=== PATIENT | male | born 1965 | race American Indian/Alaskan Native ===

== ENCOUNTER 2016-12-11 16:17 | Emergency (ER) | payer SELFPAY | END 2016-12-11 16:46 | disposition left against medical advice (07) | LOC: ED 16:17 | DX: R07.9 Chest pain, unspecified (principal); Z53.21 Procedure and treatment not carried out due to patient leaving prior to being seen by health care provider ==

== ENCOUNTER 2017-01-07 12:26 | Inpatient (IN) | payer SELFPAY ==
[2017-01-07 14:25] LABS: Basophils % (Auto) 1.2 % (0.0-1.8); Eosinophils % (Auto) 1.5 % (0.0-4.3); Hemoglobin 15.7 gm/dl (11.8-15.2); Mean Corpuscular HGB Conc 31 % (32-34); Mean Corpuscular Volume 81 fl (84-94); Platelet Count 162 K/mm3 (140-440); Red Blood Count 6.18 M/mm3 (3.65-5.03); Red Cell Distribution Width 16.8 % (13.2-15.2); White Blood Count 8.3 K/mm3 (4.5-11.0)
[2017-01-07 14:28] LABS: Mean Corpuscular Hemoglobin 25 pg (28-32)
[2017-01-07 14:42] LABS: Anion Gap 17 mmol/L; Blood Urea Nitrogen 17 mg/dL (9-20); Calcium 9.1 mg/dL (8.4-10.2); Carbon Dioxide 27 mmol/L (22-30); Chloride 101.2 mmol/L (98-107); Glucose 94 mg/dL (75-100); Potassium 4.3 mmol/L (3.6-5.0); Sodium 141 mmol/L (137-145)
--- NOTE | 2017-01-07 16:32 | Emergency Department Report ---
ED Syncope HPI - General Chief Complaint: Syncope Stated Complaint: SYNOPAL EPISODE/CHEST PAIN Time Seen by Provider: 01/07/17 16:13 Source: patient, family Exam Limitations: no limitations - History of Present Illness Initial Comments: Patient reports had a syncopal episode today. She said she's had this 3 times in the past. Patient said he felt dizzy and fell and passed out. Patient says she came in for lunch and from patient lying on the floor and when she called his name he responded immediately . Patient has a history of CHF and A. fib and he is complaining of headache. Blood Pressure was 138/108 Shortness of breath. He reports swelling to legs and abdomen with SOB. [employer] is Dr. Coe. Patient does not have a PCP. He also reported that he had chest pain upon arrival to emergency room but he said he is not having any chest pain at present. Denies any nausea vomiting. Denies any abdominal pain. He does report feeling dizzy spell. Denies any fever or chills. Denies any cough. Timing/Prior Episodes: recent history Precipitating Factors: Positive: lightheadedness. Negative: blurred vision, confusion, diaphoresis, injury, nausea, pain, recent head trauma, rapid heart beat Context: standing Loss of Consciousness: unsure Current Symptoms: chest pain, dizziness, headache, injury, lightheadedness. denies: blurred vision, diaphoresis, loss of bladder control, loss of bowel control, motionless, nausea, pale, shallow/rapid breathing, weak/absent pulse, weakness - Related Data Allergies/Adverse Reactions: Allergies latex Allergy (Verified 08/21/16 13:46) Unknown soap [From Betadine] Allergy (Verified 06/11/16 19:44) Rash peas Allergy (Uncoded 11/12/16 18:00) Angioedema Home Medications: Ambulatory Orders Apixaban [Eliquis] 5 mg PO BID #60 tablet 11/18/16 Diltiazem [Cardizem] 90 mg PO Q8H #90 tablet 11/18/16 Famotidine [Pepcid] 20 mg PO BID #30 tablet 11/18/16 Potassium Chloride [K-Dur] 40 meq PO DAILY #30 tablet 11/18/16 Amiodarone [Cordarone 200 MG TAB] 400 mg PO BID 01/07/17 Digoxin [Lanoxin] 0.25 mg PO DAILY 01/07/17 Diltiazem HCl [Diltiazem ER] 360 mg PO DAILY 01/07/17 Furosemide [Lasix TAB] 40 mg PO QDAY 01/07/17 Lisinopril [Zestril] 20 mg PO BID 01/07/17 Methimazole [Tapazole] 10 mg PO Q8HR 01/07/17 Metoprolol [Lopressor TAB] 100 mg PO TID 01/07/17 ED Review of Systems ROS: Stated complaint: SYNOPAL EPISODE/CHEST PAIN Other details as noted in HPI Comment: All other systems reviewed and negative Constitutional: denies: chills, fever Eyes: denies: eye pain, vision change ENT: denies: ear pain, throat pain, congestion Respiratory: no symptoms reported, shortness of breath, SOB with exertion, SOB at rest. denies: cough, orthopnea, stridor, wheezing Cardiovascular: chest pain, dyspnea on exertion, orthopnea, edema. denies: palpitations, syncope Gastrointestinal: denies: abdominal pain, nausea, vomiting, diarrhea, constipation Musculoskeletal: arthralgia. denies: back pain Skin: denies: rash Neurological: headache, weakness. denies: numbness, paresthesias, confusion, abnormal gait, vertigo ED Past Medical Hx - Past Medical History Previous Medical History?: Yes Hx Hypertension: Yes Hx Congestive Heart Failure: Yes Hx Arthritis: Yes Additional medical history: ATRIAL FIB - Surgical History Past Surgical History?: Yes Additional Surgical History: Sinus - Family History Family history: diabetes, hypertension - Social History Smoking Status: Former Smoker Substance Use Type: Alcohol, Prescribed - Medications Home Medications: Home Medications Medication Instructions Recorded Confirmed Last Taken Type Apixaban [Eliquis] 5 mg PO BID #60 tablet 11/18/16 01/07/17 Unknown Rx Diltiazem [Cardizem] 90 mg PO Q8H #90 tablet 11/18/16 01/07/17 Unknown Rx Famotidine [Pepcid] 20 mg PO BID #30 tablet 11/18/16 01/07/17 Unknown Rx Potassium Chloride [K-Dur] 40 meq PO DAILY #30 tablet 11/18/16 01/07/17 Unknown Rx Amiodarone [Cordarone 200 MG TAB] 400 mg PO BID 01/07/17 01/07/17 Unknown History Digoxin [Lanoxin] 0.25 mg PO DAILY 01/07/17 01/07/17 Unknown History Diltiazem HCl [Diltiazem ER] 360 mg PO DAILY 01/07/17 01/07/17 Unknown History Furosemide [Lasix TAB] 40 mg PO QDAY 01/07/17 01/07/17 Unknown History Lisinopril [Zestril] 20 mg PO BID 01/07/17 01/07/17 Unknown History Methimazole [Tapazole] 10 mg PO Q8HR 01/07/17 01/07/17 Unknown History Metoprolol [Lopressor TAB] 100 mg PO TID 01/07/17 01/07/17 Unknown History ED Physical Exam - General Limitations: No Limitations General appearance: alert, in no apparent distress - Head Head exam: Present: atraumatic, normocephalic, normal inspection - Expanded Head Exam Expanded Head exam: Absent: laceration, abrasion, contusion, hematoma, racoon eyes, nichols's sign, general tenderness, tenderness of temporal artery, CSF rhinorrhea , CSF otorrhea - Eye Eye exam: Present: normal appearance, PERRL, EOMI. Absent: periorbital swelling , periorbital tenderness Pupils: Present: normal accommodation - ENT ENT exam: Present: normal exam - Neck Neck exam: Present: normal inspection, full ROM. Absent: tenderness, meningismus, lymphadenopathy - Respiratory Respiratory exam: Present: normal lung sounds bilaterally. Absent: respiratory distress, wheezes, rales, rhonchi, stridor, chest wall tenderness, accessory muscle use, decreased breath sounds, prolonged expiratory - Cardiovascular Cardiovascular Exam: Present: irregular rhythm. Absent: JVD - Expanded Cardiovascular Exam Expanded Peripheral pulses: 2+: Radial (R), Radial (L), Posterior Tibialis (R), Posterior Tibialis (L), Dorsalis Pedis (R), Dorsalis Pedis (L) - GI/Abdominal GI/Abdominal exam: Present: soft, distended, normal bowel sounds. Absent: tenderness, guarding, rebound, rigid, diminished bowel sounds, mass, bruit - Extremities Exam Extremities exam: Present: normal inspection, full ROM, normal capillary refill , pedal edema, other (swelling to legs and feet.). Absent: tenderness, joint swelling, calf tenderness - Expanded Upper Extremity Exam Left Shoulder Exam: Present: normal inspection, full ROM, tenderness. Absent: swelling, abrasion, laceration, ecchymosis, deformity, crepidus, dislocation, erythema, tenderness over AC joint Upper Arm exam: Present: normal inspection, full ROM, tenderness, swelling. Absent: abrasion, laceration, ecchymosis, deformity, crepidus, dislocation, erythema Elbow exam: Present: normal inspection, full ROM. Absent: tenderness, swelling , abrasion, laceration, ecchymosis, deformity, crepidus, dislocation, erythema, effusion, pain w/ pronation/supination, tenderness over radial head Forearm Wrist exam: Present: normal inspection, full ROM. Absent: tenderness, swelling, abrasion, laceration, ecchymosis, deformity, crepidus, dislocation, erythema, tenderness over anatomical snuff box, pain with axial thumb loading Hand Wrist exam: Present: normal inspection, full ROM. Absent: tenderness, swelling, abrasion, laceration, ecchymosis, deformity, crepidus, dislocation, erythema, amputation, nail avulsion, subungual hematoma Neuro motor exam: Present: wrist extension intact, thumb opposition intact, thumb IP flexion intact, thumb adduction intact, fingers 2-5 abduction intact Neurosensory exam: Present: 2-point discrimination, radial nerve intact, ulnar nerve intact, median nerve intact Vascular: Present: normal capillary refill, radial pulse, brachial pulse, ulnar pulse. Absent: vascular compromise, Pallo, pulse deficit radial art, pulse deficit ulnar art, pulse deficit brachial art - Back Exam Back exam: Present: normal inspection, full ROM, tenderness. Absent: CVA tenderness (R), CVA tenderness (L), muscle spasm, paraspinal tenderness, vertebral tenderness, rash noted - Neurological Exam Neurological exam: Present: alert, oriented X3, abnormal gait, reflexes normal. Absent: motor sensory deficit - Expanded Neurological Exam Expanded Neurological exam: Absent: innattentive, memory loss-remote event, memory loss- recent event, ataxia, receptive aphasia, expressive aphasia, total aphasia, tremor, protecting the airway Patient oriented to: Present: person, place, time Speech: Present: fluid speech Cranial nerves: EOM's Intact: Normal, Gag Reflex: Normal, Nystagmus: Normal Cerebellar function: Finger to Nose: Normal Upper motor neuron: Pronator Drift: Normal Sensory exam: Upper Extremity Light Touch: Normal, Upper Extremity Temperature: Normal, UE 2 Point Discrimination: Normal, Lower Extremity Light Touch: Normal, Lower Extremity Temperature: Normal, LE 2 Point Discrimination: Normal Motor strength exam: RUE: 5, LUE: 4, RLE: 3, LLE: 3 DTR: bicep (R): 2+, bicep (L): 2+, tricep (R): 2+, tricep (L): 2+, knee (R): 2+ , knee (L): 2+, ankle (R): 2+, ankle (L): 2+ Best Eye Response (Cuauhtemoc): (4) open spontaneously Best Motor Response (Cuauhtemoc): (6) obeys commands Best Verbal Response (Cuauhtemoc): (5) oriented Cuauhtemoc Total: 15 - Psychiatric Psychiatric exam: Present: normal affect, normal mood - Skin Skin exam: Present: warm, dry, intact, normal color. Absent: rash ED Course Vital Signs 01/07/17 01/07/17 01/07/17 12:46 16:24 16:30 Temperature 98 F Pulse Rate 95 H 71 Respiratory 22 21 Rate Blood Pressure 138/108 149/95 O2 Sat by Pulse 95 99 98 Oximetry 01/07/17 01/07/17 01/07/17 17:04 17:10 17:20 Temperature Pulse Rate 77 70 73 Respiratory 12 16 16 Rate Blood Pressure 149/95 149/95 145/95 O2 Sat by Pulse 100 99 100 Oximetry 01/07/17 01/07/17 01/07/17 17:30 17:40 17:50 Temperature Pulse Rate 82 80 68 Respiratory 21 21 16 Rate Blood Pressure 149/95 149/95 149/95 O2 Sat by Pulse 98 98 97 Oximetry 01/07/17 01/07/17 01/07/17 18:00 18:10 18:20 Temperature Pulse Rate 71 77 76 Respiratory 25 H 31 H 22 Rate Blood Pressure 149/95 149/95 149/95 O2 Sat by Pulse 99 99 99 Oximetry 01/07/17 01/07/17 01/07/17 18:30 18:40 18:50 Temperature Pulse Rate 101 H 78 77 Respiratory 14 29 H 28 H Rate Blood Pressure 149/95 149/95 149/95 O2 Sat by Pulse 99 97 99 Oximetry 01/07/17 19:00 Temperature Pulse Rate 105 H Respiratory 15 Rate Blood Pressure 149/95 O2 Sat by Pulse 93 Oximetry - Reevaluation(s) Reevaluation #1: 01/07/17 17:10 Patient is currently stable awaiting diagnostic and lab results. Reevaluation #2: 01/07/17 18:30 Patient remained stable pain is down to 2 out of 10. Reevaluation #3: 01/07/17 18:[address] [place] except patient for inpatient admission. ED Medical Decision Making - Lab Data Result diagrams: 01/07/17 14:05 01/07/17 14:05 Lab Results 01/07/17 01/07/17 01/07/17 Range/Units 14:05 14:05 14:05 WBC 8.3 (4.5-11.0) K/mm3 RBC 6.18 H (3.65-5.03) M/mm3 Hgb 15.7 H (11.8-15.2) gm/dl Hct 50.0 H (35.5-45.6) % MCV 81 L (84-94) fl MCH 25 L (28-32) pg MCHC 31 L (32-34) % RDW 16.8 H (13.2-15.2) % Plt Count 162 (140-440) K/mm3 Lymph % (Auto) 21.1 (13.4-35.0) % Faulkner % (Auto) 9.5 H (0.0-7.3) % Eos % (Auto) 1.5 (0.0-4.3) % Baso % (Auto) 1.2 (0.0-1.8) % Lymph # 1.7 (1.2-5.4) K/mm3 Faulkner # 0.8 (0.0-0.8) K/mm3 Eos # 0.1 (0.0-0.4) K/mm3 Baso # 0.1 (0.0-0.1) K/mm3 Seg Neutrophils % 66.7 (40.0-70.0) % Seg Neutrophils # 5.5 (1.8-7.7) K/mm3 Sodium 141 (137-145) mmol/L Potassium 4.3 (3.6-5.0) mmol/L Chloride 101.2 (98-107) mmol/L Carbon Dioxide 27 (22-30) mmol/L Anion Gap 17 mmol/L BUN 17 (9-20) mg/dL Creatinine 1.0 (0.8-1.5) mg/dL Estimated GFR > 60 ml/min BUN/Creatinine Ratio 17.00 % Glucose 94 (75-100) mg/dL Calcium 9.1 (8.4-10.2) mg/dL Magnesium 2.1 (1.7-2.3) mg/dL Total Bilirubin 0.6 (0.1-1.2) mg/dL Direct Bilirubin < 0.2 (0-0.2) mg/dL Indirect Bilirubin 0.4 mg/dL AST 81 H (5-40) units/L ALT 88 H (7-56) units/L Alkaline Phosphatase 74 (35-129) units/L Troponin T < 0.010 (0.00-0.029) ng/mL NT-Pro-B Natriuret Pep 1954 H (0-450) pg/mL Total Protein 6.8 (6.3-8.2) g/dL Albumin 3.9 (3.9-5) g/dL Albumin/Globulin Ratio 1.3 % 01/07/17 Range/Units 17:53 WBC (4.5-11.0) K/mm3 RBC (3.65-5.03) M/mm3 Hgb (11.8-15.2) gm/dl Hct (35.5-45.6) % MCV (84-94) fl MCH (28-32) pg MCHC (32-34) % RDW (13.2-15.2) % Plt Count (140-440) K/mm3 Lymph % (Auto) (13.4-35.0) % Faulkner % (Auto) (0.0-7.3) % Eos % (Auto) (0.0-4.3) % Baso % (Auto) (0.0-1.8) % Lymph # (1.2-5.4) K/mm3 Faulkner # (0.0-0.8) K/mm3 Eos # (0.0-0.4) K/mm3 Baso # (0.0-0.1) K/mm3 Seg Neutrophils % (40.0-70.0) % Seg Neutrophils # (1.8-7.7) K/mm3 Sodium (137-145) mmol/L Potassium (3.6-5.0) mmol/L Chloride (98-107) mmol/L Carbon Dioxide (22-30) mmol/L Anion Gap mmol/L BUN (9-20) mg/dL Creatinine (0.8-1.5) mg/dL Estimated GFR ml/min BUN/Creatinine Ratio % Glucose (75-100) mg/dL Calcium (8.4-10.2) mg/dL Magnesium (1.7-2.3) mg/dL Total Bilirubin (0.1-1.2) mg/dL Direct Bilirubin (0-0.2) mg/dL Indirect Bilirubin mg/dL AST (5-40) units/L ALT (7-56) units/L Alkaline Phosphatase (35-129) units/L Troponin T < 0.010 (0.00-0.029) ng/mL NT-Pro-B Natriuret Pep (0-450) pg/mL Total Protein (6.3-8.2) g/dL Albumin (3.9-5) g/dL Albumin/Globulin Ratio % - EKG Data -: EKG Interpreted by Me (Atrial Fib) - Radiology Data Radiology results: report reviewed, image reviewed interpreted by me: X-ray of right shoulder does not reveal any fracture or dislocation reviewed by Dr. Loera. X-ray of the chest reveals congestive heart failure. CT scan of the head revealed no acute findings. - Medical Decision Making ED course: Patient status post syncopal episode with headache, left shoulder pain, shortness of breath and abdominal distention. Denies history of congestive heart failure and he is having bilateral lower extremity swelling with abdominal swelling. AST and ALTs are elevated. BNP elevated. Left shoulder x-ray revealed no acute fracture dislocation and chest x-ray reveals CHF. I discussed this with patient and family. Patient received Lasix 40 mg IV , morphine 4 mg IV and Zofran 4 mg IV in emergency room. Patient will be admitted for acute exacerbation of chronic CHF. Critical care attestation.: If time is entered above; I have spent that time in minutes in the direct care of this critically ill patient, excluding procedure time. ED Disposition Clinical Impression: Shortness of breath, Edema extremities, Arthralgia of left shoulder region, Syncope and collapse, Elevated liver enzymes CHF exacerbation Qualifiers: Congestive heart failure type: unspecified congestive heart failure type Qualified Code(s): I50.9 - Heart failure, unspecified Disposition: OP ADMITTED IP TO THIS HOSP Is pt being admited?: Yes Does the pt Need Aspirin: No Condition: Stable
[2017-01-07] MEDS ORDERED: MORPHINE IV ONE (16:38)
[2017-01-07] MEDS ORDERED: ZOFRAN IV ONE (16:38)
[2017-01-07] MEDS ORDERED: LASIX IV ONE (16:41)
--- NOTE | 2017-01-07 17:21 | Cat Scan Report ---
FINAL REPORT PROCEDURE: CT HEAD/BRAIN WO CON TECHNIQUE: Computerized tomography of the head was performed without contrast material. HISTORY: syncope with dizziness COMPARISON: CT exam dated May 03, 2015 FINDINGS: There is likely a nondisplaced fracture of the nasal bones which could be new or old. Visualized portions of the paranasal sinuses and mastoid air cells are clear. No calvarial fracture is seen. Subacute to chronic lacunar infarct is seen in the inferior aspect of the left cerebellar hemisphere but is new since 2015. Mild chronic small vessel ischemic changes in the basal ganglia are similar to prior study. Cerebral ventricles are normal in size. No acute intracranial hemorrhage or mass effect is seen. IMPRESSION: Nondisplaced nasal bone fracture is seen which could be new or old as this area is not well included on prior study. Mild small vessel ischemic changes are seen without evidence of acute intracranial abnormality.
[2017-01-07 17:23] LABS: Alanine Aminotransferase 88 units/L (7-56); Albumin 3.9 g/dL (3.9-5); Albumin/Globulin Ratio 1.3 %; Alkaline Phosphatase 74 units/L (35-129); Bilirubin,Total 0.6 mg/dL (0.1-1.2); Magnesium 2.1 mg/dL (1.7-2.3); Total Protein 6.8 g/dL (6.3-8.2)
[2017-01-07 17:25] LABS: Bilirubin,Direct < 0.2 mg/dL (0-0.2); Bilirubin,Indirect 0.4 mg/dL
--- NOTE | 2017-01-07 18:48 | Admit Criteria Form ---
Admission Criteria Documentation: HEART FAILURE: COMMON COMPLICATIONS Clinical Indications for Inpatient Care (Place 'X' for any and all applicable criteria): Ongoing inpatient care may be indicated for heart failure with ANY ONE of the following (1)(2)(3)(4)(5): [ ]I. Ongoing need for care for primary condition requiring frequent therapy adjustments because of changes in cardiac function (eg, drug dosage changes for drugs that are renally metabolized) [X ]II. New-onset heart failure [ ]III. Heart failure with decreased urine output not responsive to attempts to optimize volume status [ ]IV. Acute cardiac ischemia causing or associated with failure [X ]V. Complications of heart failure, including ANY ONE of the following: [ ]a) Pericardial effusion [ ]b) Symptomatic pleural effusion [ ]c) O2 saturation <90% or PO2 < 60 mm Hg (8.0 kPa) on room air or require baseline supplemental O2 [ ]d) Tachypnea [X ]e) Dyspnea [ ]f) Syncope [ ]g) Change in mental status [ ]h) Acute renal insufficiency that is severe (reduction of more than 50% in estimated glomerular filtration rate from baseline) or progressive reduction of more than 25% in estimated glomerular filtration rate from baseline, with creatinine continuing to rise) [ ]i) Hemodynamic instability [ ]j) Anasarca [ ]k) Clinically significant metabolic abnormalities due to heart failure (eg, new-onset metabolic acidosis) Extended stay beyond goal length of stay for primary condition may be needed until ALL of the following are present(1)(3): [ ]a) Stable and effective diuretic regimen established (or patient on stable dialysis regimen if in chronic renal failure) [ ]b) Breathing comfortably at rest [ ]c) Saturation of arterial oxygen greater than 90% or at acceptable baseline [ ]d) Pulmonary edema absent or improved [ ]e) Hemodynamic stability [ ]f) Volume status acceptable on oral medication [ ]g) Peripheral or sacral edema absent or improved [ ]h) Renal function stable and manageable at a lower level of care [ ]i) Complications (eg, pleural effusion) resolved or manageable at a lower level of care [ ]j) Patient or caregiver has received written discharge instructions or educational material addressing activity level, diet, discharge medications, follow-up appointment, weight monitoring, and what to do if symptoms worsen The original [employer] content created by [employer] has been revised. The portions of the content which have been revised are identified through the use of italic text or in bold, and [facility] has neither reviewed nor approved the modified material.All other unmodified content is copyright [facility]. Please see references footnoted in the original [facility] edition 2016 Admission Criteria Met: Yes
--- NOTE | 2017-01-07 18:51 | XRay Report ---
FINAL REPORT PROCEDURE: XR SHOULDER 2 LT TECHNIQUE: Two views of the left shoulder are obtained. Two views of the chest are obtained. HISTORY: fall with lt shoulder pain COMPARISON: Chest x-ray dated April 09, 2016 FINDINGS: Left shoulder: There is no fracture or dislocation. No arthritic changes are seen. Chest: Changes of CHF are present without pulmonary edema. No pneumothorax or focal infiltrate is seen. Tiny amount of fluid is seen in the pulmonary fissures. IMPRESSION: No left shoulder abnormality is seen. Changes of CHF are present.
--- NOTE | 2017-01-07 19:52 | XRay Report ---
FINAL REPORT PROCEDURE: XR CHEST ROUTINE 2V TECHNIQUE: Two views of the left shoulder are obtained. Two views of the chest are obtained. HISTORY: sob COMPARISON: Chest x-ray dated April 09, 2016 FINDINGS: Left shoulder: There is no fracture or dislocation. No arthritic changes are seen. Chest: Changes of CHF are present without pulmonary edema. No pneumothorax or focal infiltrate is seen. Tiny amount of fluid is seen in the pulmonary fissures. IMPRESSION: No left shoulder abnormality is seen. Changes of CHF are present.
--- NOTE | 2017-01-08 02:51 | History and Physical Report ---
History of Present Illness Date of examination: 01/07/17 Date of admission: 01/07/17 18:45 History of present illness: 51-year-old man was diagnosed with A. fib, hypertension, CHF, LOLITA comes emergency room with complaints shortness of and syncopal episode. He also complaining of feeling dizzy, this is his fourth episode of syncope since May of last year, he's never had a Holter monitor. He stated he had a stress test last year which was negative Patient denies chest pain, palpitation, cough, abdominal pain, hematochezia, dysuria, frequency, focal weakness, dysarthria, fever chills, polydipsia polyuria, hot or cold intolerance, easy bruisability, or rash or bleeding from mucosal membrane, rhinorrhea, epistaxis, earache, tinnitus, blurry vision, eye discharge, anxiety, depression. Other review of systems negative PAST SURGICAL HISTORY: Sinus SOCIAL HISTORY:Quit smoking, alcohol, drugs FAMILY HISTORY: Hypertension Medications and Allergies Allergies Allergy/AdvReac Type Severity Reaction Status Date / Time latex Allergy Unknown Verified 08/21/16 13:46 soap [From Betadine] Allergy Rash Verified 06/11/16 19:44 peas Allergy Angioedema Uncoded 11/12/16 18:00 Home Medications Medication Instructions Recorded Confirmed Last Taken Type Apixaban [Eliquis] 5 mg PO BID #60 tablet 11/18/16 01/07/17 Unknown Rx Diltiazem [Cardizem] 90 mg PO Q8H #90 tablet 11/18/16 01/07/17 Unknown Rx Famotidine [Pepcid] 20 mg PO BID #30 tablet 11/18/16 01/07/17 Unknown Rx Potassium Chloride [K-Dur] 40 meq PO DAILY #30 tablet 11/18/16 01/07/17 Unknown Rx Amiodarone [Cordarone 200 MG TAB] 400 mg PO BID 01/07/17 01/07/17 Unknown History Digoxin [Lanoxin] 0.25 mg PO DAILY 01/07/17 01/07/17 Unknown History Diltiazem HCl [Diltiazem ER] 360 mg PO DAILY 01/07/17 01/07/17 Unknown History Furosemide [Lasix TAB] 40 mg PO QDAY 01/07/17 01/07/17 Unknown History Lisinopril [Zestril] 20 mg PO BID 01/07/17 01/07/17 Unknown History Methimazole [Tapazole] 10 mg PO Q8HR 01/07/17 01/07/17 Unknown History Metoprolol [Lopressor TAB] 100 mg PO TID 01/07/17 01/07/17 Unknown History Exam - Physical Exam Narrative exam: Gen. appearance: Patient lying in bed, no apparent distress HEENT: Normocephalic, atraumatic, pupils equally round and reactive to light, extraocular movement intact, and no sclericterus,. No JVD or thyromegaly or nodule,neck supple, no carotid bruit ,mucous membranes moist, no exudate or erythema Heart: S1, S2, regular rate and rhythm Lungs: Clear to auscultation bilaterally, breathing comfortable Abdomen: Positive bowel sounds, nontender, nondistended, no organomegaly Extremity: No edema, cyanosis, clubbing Skin: No rash, nodules, warm, dry Neuro: Oriented 3, cranial nerves II-12 intact, speech is fluent, motor and sensory intact - Constitutional Vitals: Temp Pulse Resp BP Pulse Ox 97.5 F L 65 18 146/71 100 01/08/17 01:06 01/08/17 01:06 01/08/17 01:06 01/08/17 01:06 01/08/17 01:06 Results - Labs CBC & Chem 7: 01/07/17 14:05 01/07/17 14:05 - Imaging and Cardiology EKG: image reviewed Chest x-ray: image reviewed Assessment and Plan Syncope Hypertension A. fib CHF, stable LOLITA Admits medicine Check cardiac enzymes, orthostatics, d-dimer Consult cardiology, continue appropriate outpatient medications, start DVT prophylaxis
[2017-01-08 06:18] LABS: Creatine Kinase MB 2.4 ng/mL (0.0-4.0)
[2017-01-08 06:21] LABS: Creatine Kinase 98 units/L (55-170)
[2017-01-08] MEDS: CARDIZEM PO SCH ×3 (06:24→21:05)
[2017-01-08] MEDS: TAPAZOLE PO SCH ×3 (06:25→21:42)
[2017-01-08] MEDS: PERCOCET 5/325 PO PRN ×4 (06:34→21:43)
[2017-01-08] MEDS: LASIX PO SCH (09:14)
[2017-01-08] MEDS: PEPCID PO SCH ×2 (09:14→21:43)
[2017-01-08] MEDS: ZESTRIL PO SCH ×2 (09:15→21:43)
[2017-01-08] MEDS: ELIQUIS PO SCH ×2 (09:15→21:43)
[2017-01-08] MEDS: CORDARONE PO SCH ×2 (09:15→21:42)
[2017-01-08 11:18] LABS: Creatine Kinase MB 2.3 ng/mL (0.0-4.0)
[2017-01-08 11:19] LABS: Creatine Kinase 97 units/L (55-170)
--- NOTE | 2017-01-08 11:30 | Consultation ---
History of Present Illness Consult date: 01/08/17 Requesting physician: KENNETH RYAN Consult reason: syncope History of present illness: The patient has a history of permanent atrial fibrillation and chronic systolic heart failure. He had normal coronary arteries on catheterization in July 2016. Ejection fraction was 40-45 percent at that time. He was admitted yesterday on account of syncope. The patient claims that he became short of breath while at home. He then proceeded to take his Lasix. However, he felt lightheaded on his way to get his medication. The next thing he remembers is waking up on the floor while his was shaking him. He claims that this is his fourth episode of syncope since July 2016. He experienced mild substernal chest pressure after the syncopal episode yesterday. Past History Past Medical History: atrial fib (permanent), heart failure (chronic systolic), hypertension, other (normal coronary arteries in July 2016; obstructive sleep apnea; chronic atypical chest pain) Social history: denies: smoking, alcohol abuse Family history: no significant family history Medications and Allergies Allergies Allergy/AdvReac Type Severity Reaction Status Date / Time latex Allergy Unknown Verified 08/21/16 13:46 soap [From Betadine] Allergy Rash Verified 06/11/16 19:44 peas Allergy Angioedema Uncoded 11/12/16 18:00 Home Medications Medication Instructions Recorded Confirmed Last Taken Type Apixaban [Eliquis] 5 mg PO BID #60 tablet 11/18/16 01/07/17 Unknown Rx Diltiazem [Cardizem] 90 mg PO Q8H #90 tablet 11/18/16 01/07/17 Unknown Rx Famotidine [Pepcid] 20 mg PO BID #30 tablet 11/18/16 01/07/17 Unknown Rx Potassium Chloride [K-Dur] 40 meq PO DAILY #30 tablet 11/18/16 01/07/17 Unknown Rx Amiodarone [Cordarone 200 MG TAB] 400 mg PO BID 01/07/17 01/07/17 Unknown History Digoxin [Lanoxin] 0.25 mg PO DAILY 01/07/17 01/07/17 Unknown History Diltiazem HCl [Diltiazem ER] 360 mg PO DAILY 01/07/17 01/07/17 Unknown History Furosemide [Lasix TAB] 40 mg PO QDAY 01/07/17 01/07/17 Unknown History Lisinopril [Zestril] 20 mg PO BID 01/07/17 01/07/17 Unknown History Methimazole [Tapazole] 10 mg PO Q8HR 01/07/17 01/07/17 Unknown History Metoprolol [Lopressor TAB] 100 mg PO TID 01/07/17 01/07/17 Unknown History Active Meds: Active Medications Amiodarone HCl (Cordarone) 400 mg PO BID [facility] Last Admin: 01/08/17 09:15 Dose: 400 mg Apixaban (Eliquis) 5 mg PO BID [facility] Last Admin: 01/08/17 09:15 Dose: 5 mg Diltiazem HCl (Cardizem) 90 mg PO Q8H [facility] Last Admin: 01/08/17 06:24 Dose: 90 mg Famotidine (Pepcid) 20 mg PO BID [facility] Last Admin: 01/08/17 09:14 Dose: 20 mg Furosemide (Lasix) 40 mg PO QDAY [facility] Last Admin: 01/08/17 09:14 Dose: 40 mg Lisinopril (Zestril) 20 mg PO BID [facility] Last Admin: 01/08/17 09:15 Dose: 20 mg Methimazole (Tapazole) 10 mg PO Q8HR [facility] Last Admin: 01/08/17 06:25 Dose: 10 mg Oxycodone/Acetaminophen (Percocet 5/325) 1 tab PO Q4H PRN PRN Reason: Pain, Moderate (4-6) Last Admin: 01/08/17 06:34 Dose: 1 tab Review of Systems Constitutional: no fever, no chills Ears, nose, mouth and throat: no ear pain, no ear discharge, no sore throat Cardiovascular: orthopnea, syncope, lightheadedness, shortness of breath, no chest pain, no palpitations Respiratory: shortness of breath, no cough, no hemoptysis Gastrointestinal: no abdominal pain, no nausea, no vomiting, no diarrhea, no constipation Genitourinary Male: no dysuria, no urinary frequency Rectal: no pain, no bleeding Musculoskeletal: no neck stiffness, no muscle weakness, no myalgias Integumentary: no rash, no pruritis Neurological: no weakness, no parathesias, no numbness, no headaches Endocrine: no cold intolerance, no heat intolerance Hematologic/Lymphatic: no easy bruising, no easy bleeding Allergic/Immunologic: no urticaria, no wheezing Physical Examination Vital Signs Last Vital Signs Temp 98.0 F 01/08/17 08:32 Pulse 83 01/08/17 08:32 Resp 18 01/08/17 08:32 BP 184/95 01/08/17 08:32 Pulse Ox 94 01/08/17 08:32 General appearance: no acute distress HEENT: Positive: EOMI, Normocephaly, Mucus Membranes Moist Neck: Positive: neck supple, trachea midline Cardiac: Positive: irregularly irregular, S1/S2 Lungs: Positive: clear to auscultation Neuro: Positive: Grossly Intact Abdomen: Positive: Soft, Active Bowel Sounds. Negative: Tender Skin: Positive: Clear. Negative: Rash Musculoskeletal: Normal Range of Motion Extremities: Present: normal. Absent: edema Results 01/07/17 14:05 01/07/17 14:05 Cardiac Enzymes 01/08/17 01/08/17 Range/Units 05:22 10:43 CK-MB (CK-2) 2.4 2.3 (0.0-4.0) ng/mL - Imaging and Cardiology EKG: image reviewed EKG interpretations - Telemetry EKG Rhythm: Atrial Fibrillation - EKG Supraventricular dysrhythmia: atrial fibrillation Myocardial infarction: septal PR (old age or ind Assessment and Plan The exact etiology of his syncopal episode is uncertain at this time. However, I am concerned about the potential for drug interactions especially with high dose amiodarone and digoxin combination. For now, I'm discontinuing digoxin. Resume metoprolol with the hope that we may be able to reduce amiodarone requirements. Obtain thyroid profile and digoxin level. - Patient Problems (1) Syncope Current Visit: Yes Status: Acute Qualifiers: Syncope type: unspecified Encounter type: E Qualified Code(s): R55 - Syncope and collapse (2) Acute on chronic systolic heart failure Current Visit: Yes Status: Acute (3) Permanent atrial fibrillation Current Visit: Yes Status: Chronic (4) Hypertension Current Visit: Yes Status: Chronic Qualifiers: Hypertension type: essential hypertension Qualified Code(s): I10 - Essential (primary) hypertension (5) Morbid obesity Current Visit: Yes Status: Chronic Qualifiers: Obesity type: O (6) Normal coronary arteries Current Visit: Yes Status: Chronic (7) Obstructive sleep apnea Current Visit: Yes Status: Chronic
--- NOTE | 2017-01-08 11:31 | Progress Note ---
Assessment and Plan Assessment and plan: Acute on chronic systolic heart failure. On Lasix, Amiodarone. cardiology following. Chronic atrial fibrillation. On Eliquis for anticoagulation, Cardizem for rate control. Hypertension. BP stable on cardizem Hyperthyroidism. On Tapazole Morbid obesity Sleep apnea. Pulmonology evaluation DVT prophylaxis. On Eliquis History Interval history: shortness of breath, syncope Hospitalist Physical - Physical exam Narrative exam: Gen. appearance: not in acute distress,morbidly obese HEENT: Normocephalic atraumatic Neck: supple no JVD Lungs: Bilateral basal rales, decreased breath sounds, no wheezes Heart: S1-S2 irregular, no murmurs, rubs or gallop Abdomen:soft, non-tender, non-distended, normal bowel sounds Extremity: bilateral lower ext edema, no clubbing or cyanosis Neuro : Awake alert oriented 3, no focal neurologic signs Psychiatry: normal mood Skin: no rashes - Constitutional Vitals: Temp Pulse Resp BP Pulse Ox 98.0 F 83 18 184/95 94 01/08/17 08:32 01/08/17 08:32 01/08/17 08:32 01/08/17 08:32 01/08/17 08:32 Results - Labs CBC & Chem 7: 01/07/17 14:05 01/07/17 14:05 Labs: Laboratory Last Values WBC 8.3 K/mm3 (4.5-11.0) 01/07/17 14:05 RBC 6.18 M/mm3 (3.65-5.03) H 01/07/17 14:05 Hgb 15.7 gm/dl (11.8-15.2) H 01/07/17 14:05 Hct 50.0 % (35.5-45.6) H 01/07/17 14:05 MCV 81 fl (84-94) L 01/07/17 14:05 MCH 25 pg (28-32) L 01/07/17 14:05 MCHC 31 % (32-34) L 01/07/17 14:05 RDW 16.8 % (13.2-15.2) H 01/07/17 14:05 Plt Count 162 K/mm3 (140-440) 01/07/17 14:05 Lymph % (Auto) 21.1 % (13.4-35.0) 01/07/17 14:05 [place] % (Auto) 9.5 % (0.0-7.3) H 01/07/17 14:05 Eos % (Auto) 1.5 % (0.0-4.3) 01/07/17 14:05 Baso % (Auto) 1.2 % (0.0-1.8) 01/07/17 14:05 Lymph # 1.7 K/mm3 (1.2-5.4) 01/07/17 14:05 [place] # 0.8 K/mm3 (0.0-0.8) 01/07/17 14:05 Eos # 0.1 K/mm3 (0.0-0.4) 01/07/17 14:05 Baso # 0.1 K/mm3 (0.0-0.1) 01/07/17 14:05 Seg Neutrophils % 66.7 % (40.0-70.0) 01/07/17 14:05 Seg Neutrophils # 5.5 K/mm3 (1.8-7.7) 01/07/17 14:05 Sodium 141 mmol/L (137-145) 01/07/17 14:05 Potassium 4.3 mmol/L (3.6-5.0) 01/07/17 14:05 Chloride 101.2 mmol/L (98-107) 01/07/17 14:05 Carbon Dioxide 27 mmol/L (22-30) 01/07/17 14:05 Anion Gap 17 mmol/L 01/07/17 14:05 BUN 17 mg/dL (9-20) 01/07/17 14:05 Creatinine 1.0 mg/dL (0.8-1.5) 01/07/17 14:05 Estimated GFR > 60 ml/min 01/07/17 14:05 BUN/Creatinine Ratio 17.00 % 01/07/17 14:05 Glucose 94 mg/dL (75-100) 01/07/17 14:05 Calcium 9.1 mg/dL (8.4-10.2) 01/07/17 14:05 Magnesium 2.1 mg/dL (1.7-2.3) 01/07/17 14:05 Total Bilirubin 0.6 mg/dL (0.1-1.2) 01/07/17 14:05 Direct Bilirubin < 0.2 mg/dL (0-0.2) 01/07/17 14:05 Indirect Bilirubin 0.4 mg/dL 01/07/17 14:05 AST 81 units/L (5-40) H 01/07/17 14:05 ALT 88 units/L (7-56) H 01/07/17 14:05 Alkaline Phosphatase 74 units/L (35-129) 01/07/17 14:05 Total Creatine Kinase 97 units/L (55-170) 01/08/17 10:43 CK-MB (CK-2) 2.3 ng/mL (0.0-4.0) 01/08/17 10:43 CK-MB (CK-2) Rel Index 2.3 (0-4) 01/08/17 10:43 Troponin T < 0.010 ng/mL (0.00-0.029) 01/08/17 10:43 NT-Pro-B Natriuret Pep 1954 pg/mL (0-450) H 01/07/17 14:05 Total Protein 6.8 g/dL (6.3-8.2) 01/07/17 14:05 Albumin 3.9 g/dL (3.9-5) 01/07/17 14:05 Albumin/Globulin Ratio 1.3 % 01/07/17 14:05
[2017-01-08] MEDS ORDERED: LANOXIN PO SCH (17:00)
[2017-01-09] MEDS: CARDIZEM PO SCH ×3 (05:47→20:54)
[2017-01-09] MEDS: TAPAZOLE PO SCH ×3 (05:47→22:30)
[2017-01-09] MEDS: PERCOCET 5/325 PO PRN ×3 (08:18→22:32)
[2017-01-09] MEDS: PEPCID PO SCH ×2 (09:41→22:32)
[2017-01-09] MEDS: CORDARONE PO SCH ×2 (09:44→22:32)
[2017-01-09] MEDS: ELIQUIS PO SCH ×2 (09:44→22:30)
[2017-01-09] MEDS: ZESTRIL PO SCH ×2 (09:45→22:31)
[2017-01-09] MEDS: LASIX PO SCH (09:45)
--- NOTE | 2017-01-09 10:39 | Progress Note ---
Assessment and Plan Continue current management. Obtain orthostatic parameters. I may ultimately reduce his amiodarone dose. - Patient Problems (1) Syncope Current Visit: Yes Status: Acute Qualifiers: Syncope type: unspecified Encounter type: E Qualified Code(s): R55 - Syncope and collapse (2) Acute on chronic systolic heart failure Current Visit: Yes Status: Acute (3) Permanent atrial fibrillation Current Visit: Yes Status: Chronic (4) Hypertension Current Visit: Yes Status: Chronic Qualifiers: Hypertension type: essential hypertension Qualified Code(s): I10 - Essential (primary) hypertension (5) Morbid obesity Current Visit: Yes Status: Chronic Qualifiers: Obesity type: O (6) Normal coronary arteries Current Visit: Yes Status: Chronic (7) Obstructive sleep apnea Current Visit: Yes Status: Chronic Subjective Date of service: 01/09/17 Principal diagnosis: Syncope, acute on chronic SHF, Perm Afib, HTN, LOLITA Interval history: He complains of dizziness when he walks to the bathroom. He is less short of breath. Objective Vital Signs Temp Pulse Pulse Resp BP BP Pulse Ox 01/09/17 09:45 78 01/09/17 06:25 97.6 F 77 18 122/86 94 01/09/17 05:47 79 122/86 01/09/17 01:00 97.6 F 71 20 138/91 96 01/08/17 22:27 99 01/08/17 21:43 77 20 125/64 01/08/17 21:05 77 126/88 01/08/17 20:54 97.3 F L 77 20 126/88 97 01/08/17 20:19 86 01/08/17 20:01 94 01/08/17 17:51 98.1 F 80 20 139/87 93 01/08/17 13:55 98.1 F 83 18 137/106 94 01/08/17 11:50 78 - Physical Examination HEENT: Positive: EOMI, Normocephaly, Mucus Membranes Moist Neck: Positive: neck supple, trachea midline Cardiac: Positive: irregularly irregular, S1/S2 Lungs: Positive: clear to auscultation Neuro: Positive: Grossly Intact Abdomen: Positive: Soft, Active Bowel Sounds. Negative: Tender Skin: Positive: Clear. Negative: Rash Musculoskeletal: Normal Range of Motion Extremities: Present: normal. Absent: edema - Labs and Meds Cardiac Enzymes 01/08/17 Range/Units 10:43 CK-MB (CK-2) 2.3 (0.0-4.0) ng/mL - Imaging and Cardiology EKG: image reviewed - Telemetry EKG Rhythm: Atrial Fibrillation Myocardial infarction: septal [place] (old age or ind
--- NOTE | 2017-01-09 16:18 | Progress Note ---
Assessment and Plan Assessment and plan: Acute on chronic systolic heart failure. On Lasix, Amiodarone. Cardiology following. He feels better. Less shortness of breath. Less leg edema.. Possibly be discharged home tomorrow. Chronic atrial fibrillation with ventricular rate. On Eliquis for anticoagulation, Cardizem for rate control. Hypertension. BP stable on cardizem Hyperthyroidism. On Tapazole Morbid obesity Sleep apnea. Pulmonology evaluation. Obtain ABG. CPAP q hs DVT prophylaxis. On Eliquis History Interval history: less shortness of breath, no chest pain syncope Hospitalist Physical - Physical exam Narrative exam: Gen. appearance: not in acute distress,morbidly obese HEENT: Normocephalic atraumatic Neck: supple no JVD Lungs: Bilateral basal rales, decreased breath sounds, no wheezes Heart: S1-S2 irregular, no murmurs, rubs or gallop Abdomen:soft, non-tender, non-distended, normal bowel sounds Extremity: bilateral lower ext edema, no clubbing or cyanosis Neuro : Awake alert oriented 3, no focal neurologic signs Psychiatry: normal mood Skin: no rashes - Constitutional Vitals: Temp Pulse Resp BP Pulse Ox 98.0 F 78 22 161/90 98 01/09/17 08:00 01/09/17 14:41 01/09/17 08:00 01/09/17 08:00 01/09/17 10:00 General appearance: Present: no acute distress Results - Labs CBC & Chem 7: 01/07/17 14:05 01/07/17 14:05 Labs: Laboratory Last Values WBC 8.3 K/mm3 (4.5-11.0) 01/07/17 14:05 RBC 6.18 M/mm3 (3.65-5.03) H 01/07/17 14:05 Hgb 15.7 gm/dl (11.8-15.2) H 01/07/17 14:05 Hct 50.0 % (35.5-45.6) H 01/07/17 14:05 MCV 81 fl (84-94) L 01/07/17 14:05 MCH 25 pg (28-32) L 01/07/17 14:05 MCHC 31 % (32-34) L 01/07/17 14:05 RDW 16.8 % (13.2-15.2) H 01/07/17 14:05 Plt Count 162 K/mm3 (140-440) 01/07/17 14:05 Lymph % (Auto) 21.1 % (13.4-35.0) 01/07/17 14:05 [place] % (Auto) 9.5 % (0.0-7.3) H 01/07/17 14:05 Eos % (Auto) 1.5 % (0.0-4.3) 01/07/17 14:05 Baso % (Auto) 1.2 % (0.0-1.8) 01/07/17 14:05 Lymph # 1.7 K/mm3 (1.2-5.4) 01/07/17 14:05 [place] # 0.8 K/mm3 (0.0-0.8) 01/07/17 14:05 Eos # 0.1 K/mm3 (0.0-0.4) 01/07/17 14:05 Baso # 0.1 K/mm3 (0.0-0.1) 01/07/17 14:05 Seg Neutrophils % 66.7 % (40.0-70.0) 01/07/17 14:05 Seg Neutrophils # 5.5 K/mm3 (1.8-7.7) 01/07/17 14:05 Sodium 141 mmol/L (137-145) 01/07/17 14:05 Potassium 4.3 mmol/L (3.6-5.0) 01/07/17 14:05 Chloride 101.2 mmol/L (98-107) 01/07/17 14:05 Carbon Dioxide 27 mmol/L (22-30) 01/07/17 14:05 Anion Gap 17 mmol/L 01/07/17 14:05 BUN 17 mg/dL (9-20) 01/07/17 14:05 Creatinine 1.0 mg/dL (0.8-1.5) 01/07/17 14:05 Estimated GFR > 60 ml/min 01/07/17 14:05 BUN/Creatinine Ratio 17.00 % 01/07/17 14:05 Glucose 94 mg/dL (75-100) 01/07/17 14:05 Calcium 9.1 mg/dL (8.4-10.2) 01/07/17 14:05 Magnesium 2.1 mg/dL (1.7-2.3) 01/07/17 14:05 Total Bilirubin 0.6 mg/dL (0.1-1.2) 01/07/17 14:05 Direct Bilirubin < 0.2 mg/dL (0-0.2) 01/07/17 14:05 Indirect Bilirubin 0.4 mg/dL 01/07/17 14:05 AST 81 units/L (5-40) H 01/07/17 14:05 ALT 88 units/L (7-56) H 01/07/17 14:05 Alkaline Phosphatase 74 units/L (35-129) 01/07/17 14:05 Total Creatine Kinase 97 units/L (55-170) 01/08/17 10:43 CK-MB (CK-2) 2.3 ng/mL (0.0-4.0) 01/08/17 10:43 CK-MB (CK-2) Rel Index 2.3 (0-4) 01/08/17 10:43 Troponin T < 0.010 ng/mL (0.00-0.029) 01/08/17 10:43 NT-Pro-B Natriuret Pep 1954 pg/mL (0-450) H 01/07/17 14:05 Total Protein 6.8 g/dL (6.3-8.2) 01/07/17 14:05 Albumin 3.9 g/dL (3.9-5) 01/07/17 14:05 Albumin/Globulin Ratio 1.3 % 01/07/17 14:05 TSH 0.904 mlU/mL (0.270-4.200) 01/08/17 13:06 Free T4 1.63 ng/dL (0.76-1.46) H 01/08/17 13:06 Digoxin 0.2 ng/mL (0.9-2.0) L 01/08/17 13:06
[2017-01-09 18:07] LABS: ISTAT Base Excess 1; ISTAT DEVICE 0; ISTAT HCO3 26.2; ISTAT PCO2 46.2 (35-45); ISTAT PH 7.361 (7.35-7.45); ISTAT PO2 67 (80-105); ISTAT SO2 92; ISTAT TCO2 28
[2017-01-09] MEDS: LOPRESSOR PO SCH (22:31)
[2017-01-10] MEDS: TAPAZOLE PO SCH ×2 (05:32→14:00)
[2017-01-10] MEDS: CARDIZEM PO SCH ×2 (05:32→12:31)
[2017-01-10 10:05] VITALS: BP 165/99
[2017-01-10] MEDS: PEPCID PO SCH (10:12)
[2017-01-10] MEDS: LOPRESSOR PO SCH (10:12)
[2017-01-10] MEDS: LASIX PO SCH (10:13)
[2017-01-10] MEDS: CORDARONE PO SCH (10:13)
[2017-01-10] MEDS: ZESTRIL PO SCH (10:13)
[2017-01-10] MEDS: ELIQUIS PO SCH (10:14)
[2017-01-10] MEDS: PERCOCET 5/325 PO PRN ×2 (10:18→14:03)
--- NOTE | 2017-01-10 10:58 | Discharge Summary ---
Providers - Providers Date of Admission: 01/07/17 18:45 Date of discharge: 01/10/17 Attending physician: NAS ARMSTRONG 01/08/17 04:18 Consult to Physician [CONS] Routine Consulting Provider: KAVYA CANALES Reason For Exam: syncope Notified:: office secretary pl call 01/09/17 14:30 Consult to Physician [CONS] Routine Consulting Provider: MARTÍN MO Reason For Exam: sleep apnea, shortness of breath Place consult to:: Dr. 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
--- NOTE | 2017-01-10 11:52 | Progress Note ---
Assessment and Plan Stable cardiac status. He will be discharged home from a cardiac standpoint. 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 - Patient Problems (1) Syncope Current Visit: Yes Status: Acute Qualifiers: Syncope type: unspecified Encounter type: E Qualified Code(s): R55 - Syncope and collapse (2) Acute on chronic systolic heart failure Current Visit: Yes Status: Acute (3) Permanent atrial fibrillation Current Visit: Yes Status: Chronic (4) Hypertension Current Visit: Yes Status: Chronic Qualifiers: Hypertension type: essential hypertension Qualified Code(s): I10 - Essential (primary) hypertension (5) Morbid obesity Current Visit: Yes Status: Chronic Qualifiers: Obesity type: O (6) Normal coronary arteries Current Visit: Yes Status: Chronic (7) Obstructive sleep apnea Current Visit: Yes Status: Chronic Subjective Date of service: 01/10/17 Principal diagnosis: Syncope, acute on chronic SHF, Perm Afib, HTN, LOLITA Interval history: No new complaints. Objective Vital Signs Temp Pulse Pulse Pulse Resp BP BP 01/10/17 11:28 74 01/10/17 10:18 20 01/10/17 10:13 65 165/99 01/10/17 10:12 65 165/99 01/10/17 09:47 01/10/17 08:15 97.9 F 65 20 165/99 01/10/17 05:43 97.6 F 82 18 121/64 01/10/17 05:32 85 121/64 01/10/17 02:58 78 22 01/10/17 00:54 98.2 F 84 20 110/64 01/09/17 22:31 78 138/89 01/09/17 22:00 01/09/17 20:54 73 138/81 01/09/17 20:13 97.5 F L 73 18 138/81 01/09/17 18:10 98.3 F 84 20 182/88 01/09/17 14:41 78 01/09/17 12:00 70 Pulse Ox 01/10/17 11:28 01/10/17 10:18 97 01/10/17 10:13 01/10/17 10:12 01/10/17 09:47 97 01/10/17 08:15 97 01/10/17 05:43 94 01/10/17 05:32 01/10/17 02:58 94 01/10/17 00:54 94 01/09/17 22:31 01/09/17 22:00 92 01/09/17 20:54 01/09/17 20:13 92 01/09/17 18:10 94 01/09/17 14:41 01/09/17 12:00 - Physical Examination General: No Apparent Distress HEENT: Positive: EOMI, Normocephaly, Mucus Membranes Moist Neck: Positive: neck supple, trachea midline Cardiac: Positive: irregularly irregular, S1/S2 Lungs: Positive: clear to auscultation Neuro: Positive: Grossly Intact Abdomen: Positive: Soft, Active Bowel Sounds. Negative: Tender Skin: Positive: Clear. Negative: Rash Musculoskeletal: Normal Range of Motion Extremities: Present: normal. Absent: edema - Imaging and Cardiology EKG: image reviewed - Telemetry EKG Rhythm: Atrial Fibrillation Myocardial infarction: septal [place] (old age or ind
== END 2017-01-10 17:14 | disposition home or self-care (01) | DRG 292 ==
LOC: ED 12:26 → 4A 18:45
PROVIDERS: ADMIT Internal Medicine; ATTEND Internal Medicine
DX: I50.23 Acute on chronic systolic (congestive) heart failure (principal); Z68.43 Body mass index [BMI] 50.0-59.9, adult; I11.0 Hypertensive heart disease with heart failure; Z91.040 Latex allergy status; Z88.8 Allergy status to other drugs, medicaments and biological substances; Z91.010 Allergy to peanuts; M19.90 Unspecified osteoarthritis, unspecified site; Z83.3 Family history of diabetes mellitus; Z82.49 Family history of ischemic heart disease and other diseases of the circulatory system; G47.33 Obstructive sleep apnea (adult) (pediatric); I48.2 Chronic atrial fibrillation; E66.01 Morbid (severe) obesity due to excess calories; E05.90 Thyrotoxicosis, unspecified without thyrotoxic crisis or storm; Z87.891 Personal history of nicotine dependence
CPT/HCPCS: 36415; 36600; 70450; 71020; 80048; 80074; 80162; 82550; 82553; 82803; 83735; 83880; 84439; 84443; 84484; 85025; 93005; 93010; 94660; 94760; 96374; 96375; J1940; J2270; J2405

== ENCOUNTER 2017-03-12 12:25 | Emergency (ER) | payer SELFPAY ==
--- NOTE | 2017-03-12 12:57 | Emergency Department Report ---
Entered by BRIELLE AGUIRRE, acting as scribe for KYE LABOY NP. Chief Complaint: Extremity Injury, Lower Stated Complaint: SWOLLEN LEFT FOOT/PAIN Time Seen by Provider: 03/12/17 12:50 - HPI History of Present Illness: 52 y/o male presents c/o left foot pain that started 2 days ago. Sx include swelling that started yesterday and what he states is his "heart fluttering" here in ED. Pt denies SOB or any injury to the foot. - ROS Review of Systems: + swelling + "heart flutter" -SOB - Exam Vital Signs: Vital Signs 03/12/17 12:49 Temperature 97.6 F Pulse Rate 114 H Respiratory 18 Rate Blood Pressure 140/94 O2 Sat by Pulse 95 Oximetry Physical Exam: Obese male ambulatory with limp L dorsal foot with erythema and edema MSE screening note: Focused history and physical exam performed. Due to findings the following was ordered: labs, ekg ED Disposition for MSE Condition: Stable This documentation as recorded by the scribe,BRIELLE AGUIRRE,accurately reflects the service I personally performed and the decisions made by NARDA cano TRACY M, NP.
[2017-03-12 13:11] LABS: Eosinophils % (Auto) 2.1 % (0.0-4.3); Hematocrit 47.4 % (35.5-45.6); Hemoglobin 15.1 gm/dl (11.8-15.2); Mean Corpuscular HGB Conc 32 % (32-34); Mean Corpuscular Hemoglobin 26 pg (28-32); Mean Corpuscular Volume 82 fl (84-94); Platelet Count 126 K/mm3 (140-440); Red Cell Distribution Width 15.2 % (13.2-15.2); White Blood Count 6.6 K/mm3 (4.5-11.0)
[2017-03-12 13:30] LABS: BUN/Creatinine Ratio 24.28; Blood Urea Nitrogen 17 mg/dL (9-20); Carbon Dioxide 28 mmol/L (22-30)
[2017-03-12 13:31] LABS: Alanine Aminotransferase 28 units/L (7-56); Albumin 3.8 g/dL (3.9-5); Albumin/Globulin Ratio 1.3 %; Alkaline Phosphatase 73 units/L (35-129); Anion Gap 18 mmol/L; Bilirubin,Total 0.7 mg/dL (0.1-1.2); Calcium 9.3 mg/dL (8.4-10.2); Chloride 99.6 mmol/L (98-107); Glucose 148 mg/dL (75-100); Potassium 3.6 mmol/L (3.6-5.0); Sodium 142 mmol/L (137-145); Total Protein 6.7 g/dL (6.3-8.2); Uric Acid 8.9 mg/dL (3.5-7.6)
[2017-03-12] MEDS ORDERED: TYLENOL ONE (16:38)
[2017-03-12] MEDS ORDERED: TYLENOL PO ONE (16:40)
[2017-03-12] MEDS ORDERED: COLCRYS PO ONE (17:00)
--- NOTE | 2017-03-12 20:37 | Emergency Department Report ---
ED Lower Extremity HPI - General Chief Complaint: Extremity Injury, Lower Stated Complaint: SWOLLEN LEFT FOOT/PAIN Time Seen by Provider: 03/12/17 12:49 Source: patient Mode of arrival: Ambulatory Limitations: No Limitations - History of Present Illness Initial Comments: Patient is a 52-year-old male with a history of hypertension, A. fib, hyperlipidemia, diabetes, CHF, and morbid C presents with left foot pain 2 days. Patient reports atraumatic left foot pain, swelling, and redness to the top of the foot. Patient reports associated joint stiffness. Patient denies any history of gout, and reports he did drink a lot of alcohol the day before his symptoms appeared. Otherwise no fevers, chills, nausea, vomiting, diarrhea , chest pain, shortness of breath, abdominal pain, trauma, travel, or sick contacts. Patient given colchicine here in the ER. -: Sudden, days(s) (2 days) - Related Data Home Medications Medication Instructions Recorded Confirmed Last Taken Diltiazem HCl [Diltiazem ER] 360 mg PO DAILY 01/07/17 01/07/17 Unknown Furosemide [Lasix TAB] 40 mg PO QDAY 01/07/17 01/07/17 Unknown Lisinopril [Zestril TAB] 20 mg PO BID 01/07/17 01/07/17 Unknown Methimazole [Tapazole] 10 mg PO Q8HR 01/07/17 01/07/17 Unknown Previous Rx's Medication Instructions Recorded Last Taken Type Apixaban [Eliquis] 5 mg PO BID #60 tablet 11/18/16 Unknown Rx Diltiazem [Cardizem] 90 mg PO Q8H #90 tablet 11/18/16 Unknown Rx Famotidine [Pepcid] 20 mg PO BID #30 tablet 11/18/16 Unknown Rx Potassium Chloride [K-Dur] 40 meq PO DAILY #30 tablet 11/18/16 Unknown Rx Amiodarone [Cordarone 200 MG TAB] 200 mg PO BID #60 tablet 01/10/17 Unknown Rx Metoprolol [Lopressor TAB] 25 mg PO BID #60 tablet 01/10/17 Unknown Rx HYDROcodone/APAP 5-325 [[place] 1 each PO Q4HR PRN #12 tablet 03/12/17 Unknown Rx 5/325] Indomethacin 50 mg PO Q8H #15 capsule 03/12/17 Unknown Rx Allergies Allergy/AdvReac Type Severity Reaction Status Date / Time latex Allergy Itching Verified 03/12/17 12:49 soap [From Betadine] Allergy Rash Verified 03/12/17 12:49 peas Allergy Angioedema Uncoded 03/12/17 12:49 ED Review of Systems ROS: Stated complaint: SWOLLEN LEFT FOOT/PAIN Other details as noted in HPI Comment: All other systems reviewed and negative ED Past Medical Hx - Past Medical History Hx Hypertension: Yes Hx Congestive Heart Failure: Yes Hx Arthritis: Yes Additional medical history: ATRIAL FIB. OBESITY - Surgical History Additional Surgical History: Sinus - Social History Smoking Status: Former Smoker Substance Use Type: Alcohol - Medications Home Medications: Home Medications Medication Instructions Recorded Confirmed Last Taken Type Apixaban [Eliquis] 5 mg PO BID #60 tablet 11/18/16 01/07/17 Unknown Rx Diltiazem [Cardizem] 90 mg PO Q8H #90 tablet 11/18/16 01/07/17 Unknown Rx Famotidine [Pepcid] 20 mg PO BID #30 tablet 11/18/16 01/07/17 Unknown Rx Potassium Chloride [K-Dur] 40 meq PO DAILY #30 tablet 11/18/16 01/07/17 Unknown Rx Diltiazem HCl [Diltiazem ER] 360 mg PO DAILY 01/07/17 01/07/17 Unknown History Furosemide [Lasix TAB] 40 mg PO QDAY 01/07/17 01/07/17 Unknown History Lisinopril [Zestril TAB] 20 mg PO BID 01/07/17 01/07/17 Unknown History Methimazole [Tapazole] 10 mg PO Q8HR 01/07/17 01/07/17 Unknown History Amiodarone [Cordarone 200 MG TAB] 200 mg PO BID #60 tablet 01/10/17 Unknown Rx Metoprolol [Lopressor TAB] 25 mg PO BID #60 tablet 01/10/17 Unknown Rx HYDROcodone/APAP 5-325 [[place] 1 each PO Q4HR PRN #12 tablet 03/12/17 Unknown Rx 5/325] Indomethacin 50 mg PO Q8H #15 capsule 03/12/17 Unknown Rx ED Physical Exam - General Limitations: No Limitations, Other (Morbidly obese) General appearance: alert, in no apparent distress - Head Head exam: Present: atraumatic, normocephalic - Eye Eye exam: Present: normal appearance - ENT ENT exam: Present: mucous membranes moist - Neck Neck exam: Present: normal inspection - Respiratory Respiratory exam: Present: normal lung sounds bilaterally. Absent: respiratory distress - Cardiovascular Cardiovascular Exam: Present: regular rate, normal rhythm. Absent: systolic murmur, diastolic murmur, rubs, gallop - GI/Abdominal GI/Abdominal exam: Present: soft, normal bowel sounds - Rectal Rectal exam: Present: deferred - Extremities Exam Extremities exam: Present: full ROM, tenderness (to the dorsum of the L foot), normal capillary refill, pedal edema (over the dorsum of the left foot only), joint swelling, other (No warmth, mild erythema) - Back Exam Back exam: Present: normal inspection - Neurological Exam Neurological exam: Present: alert, oriented X3 - Psychiatric Psychiatric exam: Present: normal affect, normal mood - Skin Skin exam: Present: warm, dry, intact. Absent: rash ED Course Vital Signs 03/12/17 03/12/17 03/12/17 12:49 16:50 19:01 Temperature 97.6 F 98.9 F Pulse Rate 114 H 94 H Respiratory 18 Rate Blood Pressure 140/94 Blood Pressure 189/110 [Left] O2 Sat by Pulse 95 100 Oximetry 03/12/17 19:04 Temperature Pulse Rate Respiratory Rate Blood Pressure Blood Pressure [Left] O2 Sat by Pulse 94 Oximetry ED Lower Extremity MDM - Lab Data Result diagrams: 03/12/17 12:57 03/12/17 12:57 Critical care attestation.: If time is entered above; I have spent that time in minutes in the direct care of this critically ill patient, excluding procedure time. ED Disposition Clinical Impression: Foot pain, Gout attack Disposition: DISCHARGED TO HOME OR SELFCARE Is pt being admited?: No Condition: Stable Instructions: Acute Gouty Arthritis (ED), Arthralgia (ED) Prescriptions: HYDROcodone/APAP 5-325 [[place] 5/325] 1 each PO Q4HR PRN #12 tablet PRN Reason: Pain Indomethacin 50 mg PO Q8H #15 capsule Referrals: PRIMARY CARE, [Primary Care Provider] - 3-5 Days
[2017-03-12 20:48] VITALS: BP 180/123
== END 2017-03-12 21:12 | disposition home or self-care (01) ==
LOC: ED 12:25
DX: M10.9 Gout, unspecified (principal); M79.672 Pain in left foot; I10 Essential (primary) hypertension; I50.9 Heart failure, unspecified; M19.90 Unspecified osteoarthritis, unspecified site; Z87.891 Personal history of nicotine dependence; E66.9 Obesity, unspecified; Z91.010 Allergy to peanuts; Z91.040 Latex allergy status
CPT/HCPCS: 36415; 80053; 83880; 84484; 84550; 85025; 93005; 93010; 99283

== ENCOUNTER 2017-08-07 13:26 | Emergency (ER) | payer OTHER ==
[2017-08-07] MEDS ORDERED: NACL 0.9% 1000 ML 1,000 ML IV ONE (14:00)
[2017-08-07] MEDS ORDERED: CARDIZEM ONE (14:14)
[2017-08-07] MEDS ORDERED: NACL 0.9% 1000 ML 1,000 ML ONE (14:15)
[2017-08-07] MEDS ORDERED: CARDIZEM IV ONE ×3 (14:16→14:45)
[2017-08-07 14:23] LABS: Basophils % (Auto) 0.7 % (0.0-1.8); Hematocrit 47.5 % (35.5-45.6); Hemoglobin 15.2 gm/dl (11.8-15.2); Mean Corpuscular HGB Conc 32 % (32-34); Mean Corpuscular Hemoglobin 27 pg (28-32); Mean Corpuscular Volume 83 fl (84-94); Platelet Count 170 K/mm3 (140-440); Red Blood Count 5.74 M/mm3 (3.65-5.03); Red Cell Distribution Width 14.9 % (13.2-15.2); White Blood Count 6.7 K/mm3 (4.5-11.0)
--- NOTE | 2017-08-07 14:26 | XRay Report ---
PORTABLE CHEST INDICATION: Chest pain. COMPARISON: 01/07/2017 FINDINGS: Portable, frontal chest radiograph again demonstrates mild cardiomegaly. Prominent/crowded bronchovascular markings centrally without significant pleural effusions or overt CHF. EKG leads. Stable bones with few degenerative changes. CONCLUSION: Cardiomegaly again noted, as described. Thank you for the opportunity to participate in this patient's care.
[2017-08-07 14:32] LABS: Anion Gap 18 mmol/L; Blood Urea Nitrogen 10 mg/dL (9-20); Calcium 9.4 mg/dL (8.4-10.2); Carbon Dioxide 26 mmol/L (22-30); Chloride 98.8 mmol/L (98-107); Glucose 178 mg/dL (75-100); Potassium 3.6 mmol/L (3.6-5.0); Sodium 139 mmol/L (137-145)
[2017-08-07] MEDS ORDERED: SUBLIMAZE IV ONE ×2 (14:56→14:59)
[2017-08-07] MEDS ORDERED: CARDIZEM/D5W 100MG/100ML 100 MG/100 ML BAG IV SCH ×2 (15:00)
--- NOTE | 2017-08-07 15:32 | Emergency Department Report ---
ED Chest Pain HPI - General Chief Complaint: Chest Pain Stated Complaint: CHEST PAIN Time Seen by Provider: 08/07/17 13:58 Source: patient Mode of arrival: Ambulatory Limitations: Physical Limitation - History of Present Illness Initial Comments: 52-year-old male presents to the emergency department, driving himself in to be seen, with a complaint of sharp nature no chest pain that began earlier this morning and has been going on since. It is associated with some mild shortness of breath. He denies any nausea, vomiting, diaphoresis, back pain. The patient has a history of CHF, hypertension and atrial fibrillation. He is on [place] and says that he has been compliant with his medication. Patient says that he has not been in atrial fibrillation for "a while." He did not take anything for her symptoms prior to presentation. He does not have a primary care physician and his knocker off is a Dr. Bernal through [facility]. Severity scale (0 -10): 6 - Related Data Home Medications Medication Instructions Recorded Confirmed Last Taken Diltiazem HCl [Diltiazem ER] 360 mg PO DAILY 01/07/17 01/07/17 Unknown Furosemide [Lasix TAB] 40 mg PO QDAY 01/07/17 01/07/17 Unknown Lisinopril [Zestril TAB] 20 mg PO BID 01/07/17 01/07/17 Unknown Methimazole [Tapazole] 10 mg PO Q8HR 01/07/17 01/07/17 Unknown Previous Rx's Medication Instructions Recorded Last Taken Type Apixaban [Eliquis] 5 mg PO BID #60 tablet 11/18/16 Unknown Rx Diltiazem [Cardizem] 90 mg PO Q8H #90 tablet 11/18/16 Unknown Rx Famotidine [Pepcid] 20 mg PO BID #30 tablet 11/18/16 Unknown Rx Potassium Chloride [K-Dur] 40 meq PO DAILY #30 tablet 11/18/16 Unknown Rx Amiodarone [Cordarone 200 MG TAB] 200 mg PO BID #60 tablet 01/10/17 Unknown Rx Metoprolol [Lopressor TAB] 25 mg PO BID #60 tablet 01/10/17 Unknown Rx HYDROcodone/APAP 5-325 [[place] 1 each PO Q4HR PRN #12 tablet 03/12/17 Unknown Rx 5/325] Indomethacin 50 mg PO Q8H #15 capsule 03/12/17 Unknown Rx Allergies Allergy/AdvReac Type Severity Reaction Status Date / Time latex Allergy Itching Verified 03/12/17 12:49 soap [From Betadine] Allergy Rash Verified 03/12/17 12:49 peas Allergy Angioedema Uncoded 03/12/17 12:49 Heart Score - HEART Score History: Moderately suspicious EKG: Non-specific Age: 45-65 Risk factors: > 3 risk factors or hx of atherosclerotic disease Troponin: < normal limit HEART Score: 5 - Critical Actions Critical Actions: 4-6 pts:12-16.6% risk of adverse cardiac event. Should be admitted ED Review of Systems ROS: Stated complaint: CHEST PAIN Other details as noted in HPI Comment: All other systems reviewed and negative Constitutional: denies: chills, fever Eyes: denies: eye pain, eye discharge, vision change ENT: denies: ear pain, throat pain Respiratory: shortness of breath. denies: cough Cardiovascular: chest pain. denies: palpitations Gastrointestinal: denies: abdominal pain, nausea, diarrhea Genitourinary: denies: urgency, dysuria Musculoskeletal: denies: back pain, joint swelling, arthralgia Skin: denies: rash, lesions Neurological: denies: headache, weakness, paresthesias ED Past Medical Hx - Past Medical History Previous Medical History?: Yes Hx Hypertension: Yes Hx Congestive Heart Failure: Yes Hx Arthritis: Yes Additional medical history: ATRIAL FIB. OBESITY - Surgical History Past Surgical History?: Yes Additional Surgical History: Sinus - Social History Smoking Status: Former Smoker Substance Use Type: Prescribed - Medications Home Medications: Home Medications Medication Instructions Recorded Confirmed Last Taken Type Apixaban [Eliquis] 5 mg PO BID #60 tablet 11/18/16 01/07/17 Unknown Rx Diltiazem [Cardizem] 90 mg PO Q8H #90 tablet 11/18/16 01/07/17 Unknown Rx Famotidine [Pepcid] 20 mg PO BID #30 tablet 11/18/16 01/07/17 Unknown Rx Potassium Chloride [K-Dur] 40 meq PO DAILY #30 tablet 11/18/16 01/07/17 Unknown Rx Diltiazem HCl [Diltiazem ER] 360 mg PO DAILY 01/07/17 01/07/17 Unknown History Furosemide [Lasix TAB] 40 mg PO QDAY 01/07/17 01/07/17 Unknown History Lisinopril [Zestril TAB] 20 mg PO BID 01/07/17 01/07/17 Unknown History Methimazole [Tapazole] 10 mg PO Q8HR 01/07/17 01/07/17 Unknown History Amiodarone [Cordarone 200 MG TAB] 200 mg PO BID #60 tablet 01/10/17 Unknown Rx Metoprolol [Lopressor TAB] 25 mg PO BID #60 tablet 01/10/17 Unknown Rx HYDROcodone/APAP 5-325 [[place] 1 each PO Q4HR PRN #12 tablet 03/12/17 Unknown Rx 5/325] Indomethacin 50 mg PO Q8H #15 capsule 03/12/17 Unknown Rx ED Physical Exam - General Limitations: Physical Limitation - Other Other exam information: GENERAL: The patient is well-developed well-nourished. HENT: Normocephalic. Atraumatic. Patient has moist mucous membranes. EYES: Extraocular motions are intact. Pupils equal reactive to light bilaterally. NECK: Supple. Trachea is midline. CHEST/LUNGS: Lungs are clear to auscultation. There is some mild tachypnea but no accessory muscle use. There is no respiratory distress. HEART/CARDIOVASCULAR: Irregularly irregular. With rapid rate. ABDOMEN: Abdomen is soft, nontender. Patient has normal bowel sounds. There is no abdominal distention. Morbidly obese habitus. SKIN: Skin is warm and dry. NEURO: The patient is awake, alert, and oriented. The patient is cooperative. The patient has no focal neurologic deficits. The patient has normal speech. MUSCULOSKELETAL: There is no tenderness or deformity. There is no limitation range of motion. There is no evidence of acute injury. ED Course Vital Signs 08/07/17 08/07/17 08/07/17 13:38 14:20 14:39 Temperature 97.5 F L Pulse Rate 72 174 H 152 H Respiratory 20 22 Rate Blood Pressure 124/100 107/63 Blood Pressure 106/64 [Right] O2 Sat by Pulse 95 98 Oximetry 08/07/17 14:50 Temperature Pulse Rate 91 H Respiratory 22 Rate Blood Pressure Blood Pressure 103/60 [Right] O2 Sat by Pulse 100 Oximetry ANIL score - Anil Score Age > 65: (0) No Aspirin use within the Past 7 Days: (0) No 3 or more CAD Risk Factors: (1) Yes 2 or more Angina events in past 24 hrs: (0) No Known CAD with more than 50% Stenosis: (0) No Elevated Cardiac Markers: (0) No ST Deviation Greater than 0.5mm: (0) No ANIL Score: 1 ED Medical Decision Making - Lab Data Result diagrams: 08/07/17 13:47 08/07/17 13:47 - EKG Data -: EKG Interpreted by Me - EKG Data When compared to previous EKG there are: changes noted (previous EKG shows sinus rhythm, current is atrial fibrillation) Interpretation: other (atrial fibrillation with rate of 177 bpm, normal axis, nonspecific ST-T changes) - Radiology Data Radiology results: image reviewed interpreted by me: Chest x-ray does not show any acute process. There are no pleural effusions, obvious pneumonia and there is no pneumothorax. - Medical Decision Making 52-year-old male presents to the emergency department with chest pain and in atrial fibrillation with RVR. He has a history of this in the past but is not in constant A. fib. He was given 2 boluses of Cardizem followed by a Cardizem drip and there is rate control but there has not been any chemical cardioversion. Patient is feeling improved with rate control and some pain medication. First troponin negative. Patient is allegedly therapeutic on his anticoagulation and therefore lower suspicion of PE as a source of his symptoms. He will be admitted to the hospital for further evaluation and treatment and previously has seen [facility] cardiology while at [facility]. - Differential Diagnosis atrial fibrillation, OR, pneumonia, CHF Critical Care Time: No Critical care attestation.: If time is entered above; I have spent that time in minutes in the direct care of this critically ill patient, excluding procedure time. ED Disposition Clinical Impression: Atrial fibrillation with RVR Obesity Qualifiers: Obesity type: unspecified obesity type Obesity classification: unspecified obesity classification Serious obesity comorbidity presence: unspecified whether serious comorbidity present Qualified Code(s): E66.9 - Obesity, unspecified Chest pain Qualifiers: Chest pain type: unspecified Qualified Code(s): R07.9 - Chest pain, unspecified Disposition: OP ADMIT IP TO THIS HOSP Is pt being admited?: Yes Condition: Fair Instructions: Chest Pain (ED) Referrals: PRIMARY CARE, [Primary Care Provider] - 3-5 Days Time of Disposition: 15:33
--- NOTE | 2017-08-07 15:43 | Admit Criteria Form ---
Admission Criteria Documentation: TELEMETRY CARE Telemetry Admission Guidelines (Place 'X' for any and all applicable criteria): Admission to telemetry [A] may be indicated for ANY ONE of the following(1)(2)(3 )(4)(5): [x ]I. Cardiac disease, including ANY ONE of the following (9)(10)(11)(12)( 13): [ ]a) Postacute AK [ ]b) Low-risk patients with ST-segment elevation AK who have undergone successful percutaneous coronary intervention [x ]c) Unstable angina [ ]d) Suspected AK (until it is ruled out) [ ]e) Post cardiac surgery (first 48 to 72 hours unless complications occur) [x ]f) Acute arrhythmias (including significant tachycardia or bradycardia) [B] [ ]g) Firing of an implantable cardioverter defibrillator [C] [ ]h) Suspected pacemaker or implantable cardioverter defibrillator malfunction (10) [ ]i) New administration or adjustment of an antiarrhythmic drug [D ] [ ]j) Child admitted for acute congestive heart failure [ ]j) Long QT syndrome [ ]k) Advanced heart block (eg, second-degree Mobitz type II, third- degree heart block) [ ]l) Acute myocarditis or pericarditis [ ]m) Short-term (ambulatory or inpatient) monitoring after a cardiac procedure as indicated by ANY ONE of the following [E]: [ ]i) Electrophysiologic studies [ ]ii) Percutaneous coronary intervention with stent placement [ ]iii) Pacemaker placement with cardiac conduction defect [ ]iv) Implantable cardiac defibrillator placement [ ]II. Drug overdose or poisoning with substance that causes arrhythmias or QT prolongation (eg, phenothiazines, sympathomimetic agents, cyclic antidepressants, digitalis, antiarrhythmic drugs)(15) [ ]III. Short-term (ambulatory or inpatient) monitoring after therapeutic or diagnostic procedure requiring conscious sedation or anesthesia (eg, endoscopy, elective cardioversion) [ ]IV. Acute cerebrovascular even[F](18) [ ]V. Massive blood transfusion (eg, at least 10 units of packed red blood cells in 24 hours) [ ]. Variceal bleeding after endoscopy, sclerotherapy, or IV vasopressin [ ]VII. Uncorrected electrolyte abnormalities associated with an increased risk of dangerous arrhythmia [G]; examples include [ ]a) Hyperkalemia with attributable ECG changes [ ]b) Potassium greater than 6.5 mmol/L (mEq/L) in a patient without history of chronic renal disease [ ]c) Prolonged QT attributed to hypokalemia, hypomagnesemia, or hypocalcemia [ ]VIII.Unexplained syncope or other neurologic event suspected of being due to arrhythmia due to a finding that increases risk; examples include(19)(20)(21): [ ]a) High-risk ECG findings (eg, bifascicular block, bradycardia, abnormal QT interval, ventricular pre- excitation) [ ]b) History of previous syncope due to arrhythmia [ ]c) Abnormal ventricular function (eg, reduced ejection fraction ) [ ]d) Exertional or supine syncope [ ]e) Concerning syncope characteristics (eg, sudden loss of consciousness without prodrome) [ ]f) Family history of sudden [ ]g) Use of arrhythmogenic medication [ ]h) Suspected cardiac ischemia [ ]i) Known channelopathy (eg, long QT syndrome, Brugada syndrome, or catecholaminergic paroxysmal ventricular tachycardia) [ ]j) Known structural heart disease (eg, hypertrophic cardiomyopathy , severe valvular disease) [ ]k) Palpitations preceding syncope The original [employer] content created by [employer] has been revised. The portions of the content which have been revised are identified through the use of italic text or in bold, and [email or web address] has neither reviewed nor approved the modified material. All other unmodified content is copyright [employer]. Please see references footnoted in the original [employer] edition 2016
--- NOTE | 2017-08-07 20:06 | History and Physical Report ---
History of Present Illness Chief complaint: chest pain History of present illness: 52 YO Male with HTN, CHF, OA, A fib, Obesity presents to ED for evaluation of chest pain. Pt states that he experienced acute onset of chest pain this morning around 0800 hrs. Pain was 6/10, Sharp, associated with shortness of breath, nonradiating, not worsened with exertion or relieved with rest. Pt denies fever, chills, palpitations, NVD, synope, hemoptysis, BRBPR, leg pain, calf pain, prolonged travel/immobility, trauma, individual/family history of DVT /PE, or recent ill contacts. Pt seen and evaluated in ED. Serial cardiac enzymes, ekg, telemetry monitoring unremarkable for signs of cardiac ischemia. Pt medically optimized and discharged home and instructed to f/u pcp 1 wk, and cardiology prn. Past History Past Medical History: atrial fib, arthritis, heart failure, hypertension Past Surgical History: No surgical history, Other (reviewed) Social history: . denies: smoking, alcohol abuse, prescription drug abuse Family history: hypertension Medications and Allergies Allergies Allergy/AdvReac Type Severity Reaction Status Date / Time latex Allergy Itching Verified 08/07/17 19:27 soap [From Betadine] Allergy Rash Verified 08/07/17 19:27 peas Allergy Angioedema Uncoded 08/07/17 19:27 Home Medications Medication Instructions Recorded Confirmed Last Taken Type Apixaban [Eliquis] 5 mg PO BID #60 tablet 11/18/16 08/07/17 Unknown Rx Potassium Chloride [K-Dur] 40 meq PO DAILY #30 tablet 11/18/16 08/07/17 Unknown Rx Diltiazem HCl [Diltiazem ER] 360 mg PO DAILY 01/07/17 08/07/17 Unknown History Lisinopril [Zestril TAB] 20 mg PO BID 01/07/17 08/07/17 Unknown History Metoprolol [Lopressor TAB] 25 mg PO BID #60 tablet 01/10/17 08/07/17 Unknown Rx Apixaban [Eliquis] 5 mg PO BID #60 tablet 08/07/17 Unknown Rx Colchicine [Colcrys] 0.6 mg PO DAILY 08/07/17 08/07/17 Unknown History Diltiazem HCl [Cardizem LA] 360 mg PO DAILY #30 tab.er.24h 08/07/17 Unknown Rx Diltiazem HCl [Cardizem LA] 360 mg PO DAILY #30 tab.er.24h 08/07/17 Unknown Rx Dofetilide 250 mcg PO BID #60 capsule 08/07/17 Unknown Rx Dofetilide [Tikosyn] 250 mcg PO BID 08/07/17 08/07/17 Unknown History Lisinopril [Zestril TAB] 20 mg PO BID #60 tablet 08/07/17 Unknown Rx Metoprolol [Lopressor TAB] 25 mg PO BID #60 tablet 08/07/17 Unknown Rx Potassium Chloride [K-Dur] 20 meq PO QDAY #30 tablet 08/07/17 Unknown Rx Torsemide [Demadex] 20 mg PO DAILY 08/07/17 08/07/17 Unknown History Torsemide [Demadex] 20 mg PO DAILY #30 tablet 08/07/17 Unknown Rx amLODIPine [Norvasc] 5 mg PO DAILY 08/07/17 08/07/17 Unknown History amLODIPine [Norvasc] 5 mg PO DAILY #30 tab 08/07/17 Unknown Rx Active Meds: Active Medications Diltiazem HCl (Cardizem/D5w 100mg/100ml) 100 mg in 100 mls @ 5 mls/hr IV TITR EUGENIO; 5 MG/HR PRN Reason: Protocol Last Admin: 08/07/17 15:24 Dose: 5 mg/hr, 5 mls/hr Review of Systems Constitutional: no weight loss, no weight gain, no fever, no chills Ears, nose, mouth and throat: no ear pain, no ear discharge, no tinnitis, no decreased hearing, no nose pain Cardiovascular: chest pain, no orthopnea, no palpitations, no rapid/irregular heart beat, no edema, no syncope, no lightheadedness Respiratory: no cough, no cough with sputum, no excessive sputum, no hemoptysis , no shortness of breath Gastrointestinal: no abdominal pain, no nausea, no vomiting, no diarrhea, no change in bowel habits Genitourinary Male: no dysuria, no hematuria, no flank pain, no discharge, no urinary frequency Rectal: no pain, no incontinence, no bleeding Musculoskeletal: no neck stiffness, no neck pain, no shooting arm pain, no arm numbness/tingling Integumentary: no rash, no pruritis, no redness, no sores, no wounds Neurological: no head injury, no transient paralysis, no paralysis, no weakness Psychiatric: no anxiety, no memory loss, no change in sleep habits, no sleep disturbances Endocrine: no cold intolerance, no heat intolerance, no polyphagia, no excessive thirst, no polydipsia Hematologic/Lymphatic: no easy bruising, no easy bleeding Allergic/Immunologic: no urticaria, no allergic rhinitis, no wheezing Exam - Constitutional Vitals: Temp Pulse Resp BP Pulse Ox 97.5 F L 68 14 145/77 99 08/07/17 13:38 08/07/17 19:20 08/07/17 19:20 08/07/17 19:20 08/07/17 19:20 General appearance: Present: no acute distress, well-nourished - EENT Eyes: Present: PERRL ENT: hearing intact, clear oral mucosa - Neck Neck: Present: supple, normal ROM - Respiratory Respiratory effort: normal Respiratory: bilateral: CTA - Cardiovascular Heart Sounds: Present: S1 & S2. Absent: rub, click - Extremities Extremities: pulses symmetrical, No edema Peripheral Pulses: within normal limits - Abdominal General gastrointestinal: Present: soft, non-tender, non-distended, normal bowel sounds Male genitourinary: Present: normal - Integumentary Integumentary: Present: clear, warm, dry - Musculoskeletal Musculoskeletal: gait normal, strength equal bilaterally - Psychiatric Psychiatric: appropriate mood/affect, intact judgment & insight - Neurologic Neurologic: CNII-XII intact, moves all extremities Results - Labs CBC & Chem 7: 08/07/17 13:47 08/07/17 13:47 Labs: Abnormal lab results 08/07/17 08/07/17 Range/Units 13:47 13:47 RBC 5.74 H (3.65-5.03) M/mm3 Hct 47.5 H (35.5-45.6) % MCV 83 L (84-94) fl MCH 27 L (28-32) pg Emanuel % (Auto) 8.8 H (0.0-7.3) % Glucose 178 H (75-100) mg/dL Assessment and Plan - Patient Problems (1) Atypical chest pain Status: Acute Plan to address problem: Cardiac workup unremarkable for acute ischemia. Pt discharged home and instructed to f/u pcp 1wk, Cardiology prn. (2) GERD (gastroesophageal reflux disease) Status: Acute Qualifiers: Esophagitis presence: E Plan to address problem: PPI therapy
[2017-08-08] VITALS: BP 142/80
== END 2017-08-07 20:39 | disposition admitted as inpatient to this hospital (09) ==
LOC: ED 13:26
DX: E66.9 Obesity, unspecified (principal); I48.91 Unspecified atrial fibrillation; R07.9 Chest pain, unspecified; I10 Essential (primary) hypertension; I50.9 Heart failure, unspecified; M19.90 Unspecified osteoarthritis, unspecified site; Z87.891 Personal history of nicotine dependence; Z91.040 Latex allergy status
CPT/HCPCS: 36415; 71010; 80048; 84443; 84484; 85025; 93005; 93010; 96361; 96365; 96366; 96375; 96376; 99284; J3010; J7030

== ENCOUNTER 2017-10-09 07:01 | Emergency (ER) | payer SELFPAY ==
[2017-10-09 07:17] VITALS: BP 160/100
--- NOTE | 2017-10-09 07:36 | Emergency Department Report ---
HPI - General Chief Complaint: Extremity Injury, Lower Time Seen by Provider: 10/09/17 07:22 - HPI HPI: This is a 52-year-old male who presents to ED complaining right foot pain 2 weeks. Patient states he has a history of gout and takes his medication for gout. Patient is states to foot pain is localized to the anterior and posterior arch of the foot. Patient needs is some swelling of the ankle that resolves in the morning and is worse at night. Patient describes pain as aching and throbbing in nature. Patient denies any falls or trauma to the foot. He denies fevers/chills/nausea or vomiting/chest pain shortness of breath/ dizziness/headache or any other problems. ED Past Medical Hx - Past Medical History Previous Medical History?: Yes Hx Hypertension: Yes Hx Congestive Heart Failure: Yes Hx Arthritis: Yes Additional medical history: ATRIAL FIB. OBESITY, USES BIPAP @ NIGHT - Surgical History Past Surgical History?: Yes Additional Surgical History: Sinus - Social History Smoking Status: Former Smoker Substance Use Type: Alcohol, Prescribed - Medications Home Medications: Home Medications Medication Instructions Recorded Confirmed Last Taken Type Apixaban [Eliquis] 5 mg PO BID #60 tablet 11/18/16 08/07/17 Unknown Rx Potassium Chloride [K-Dur] 40 meq PO DAILY #30 tablet 11/18/16 08/07/17 Unknown Rx Diltiazem HCl [Diltiazem 24Hr ER] 360 mg PO DAILY 01/07/17 08/07/17 Unknown History Lisinopril [Zestril TAB] 20 mg PO BID 01/07/17 08/07/17 Unknown History Metoprolol [Lopressor TAB] 25 mg PO BID #60 tablet 01/10/17 08/07/17 Unknown Rx Apixaban [Eliquis] 5 mg PO BID #60 tablet 08/07/17 Unknown Rx Diltiazem HCl [Cardizem LA] 360 mg PO DAILY #30 tab.er.24h 08/07/17 Unknown Rx Diltiazem HCl [Cardizem LA] 360 mg PO DAILY #30 tab.er.24h 08/07/17 Unknown Rx Dofetilide 250 mcg PO BID #60 capsule 08/07/17 Unknown Rx Dofetilide [Tikosyn] 250 mcg PO BID 08/07/17 08/07/17 Unknown History Lisinopril [Zestril TAB] 20 mg PO BID #60 tablet 08/07/17 Unknown Rx Metoprolol [Lopressor TAB] 25 mg PO BID #60 tablet 08/07/17 Unknown Rx Potassium Chloride [K-Dur] 20 meq PO QDAY #30 tablet 08/07/17 Unknown Rx Torsemide [Demadex] 20 mg PO DAILY 08/07/17 08/07/17 Unknown History Torsemide [Demadex] 20 mg PO DAILY #30 tablet 08/07/17 Unknown Rx amLODIPine [Norvasc] 5 mg PO DAILY 08/07/17 08/07/17 Unknown History amLODIPine [Norvasc] 5 mg PO DAILY #30 tab 08/07/17 Unknown Rx Acetaminophen/Codeine [Tylenol 1 tab PO Q6H PRN #12 tab 10/09/17 Unknown Rx /Codeine # 3 tab] Colchicine [Colcrys] 0.6 mg PO DAILY #20 tablet 10/09/17 Unknown Rx Cyclobenzaprine [Flexeril 10 MG 10 mg PO QHS #24 tablet 10/09/17 Unknown Rx TAB] Diclofenac Dr (Nf) 50 mg PO BID #30 tablet.dr 10/09/17 Unknown Rx ED Review of Systems ROS: Stated complaint: R FOOT INJURY Other details as noted in HPI Constitutional: denies: chills, fever Eyes: denies: eye pain, eye discharge, vision change ENT: denies: ear pain, throat pain Respiratory: denies: cough, shortness of breath, wheezing Cardiovascular: denies: chest pain, palpitations Endocrine: no symptoms reported Gastrointestinal: denies: abdominal pain, nausea, diarrhea Genitourinary: denies: urgency, dysuria Musculoskeletal: arthralgia, myalgia. denies: back pain, joint swelling Skin: denies: rash, lesions Neurological: denies: headache, weakness, numbness, paresthesias Psychiatric: denies: anxiety, depression Hematological/Lymphatic: denies: easy bleeding, easy bruising Physical Exam - Physical Exam Vital Signs: Vital Signs 10/09/17 07:13 Temperature 97.5 F L Pulse Rate 101 H Respiratory 22 Rate Blood Pressure 160/100 O2 Sat by Pulse 95 Oximetry Physical Exam: GENERAL: Alert and oriented x3, no apparent distress, Normal Gait, atraumatic. HEAD: Head is normocephalic and a-traumatic. LUNGS: Symetrical with respiration, HEART: S1, S2 present, regular rate and rhythm EXTREMITIES/MUSCULOSKELETAL: No cyanosis, clubbing, rash, lesions or edema. Full ROM bilaterally the foot. UE/LE Pulses 2+ bilaterally. LE 5+ strength bilaterally, right ankle nontender to palpation, tenderness to palpation of the anterior aspect of the foot. Mild soft tissue swelling, nonpitting edema. No calf tenderness bilaterally. NEUROLOGIC: The patient is cooperative with no focal neurologic deficits. Normal speech. Normal sensation in bilateral upper and lower extremities, No loss of sensation, SKIN: Warm and dry, No lesions, No ulceration or induration present. ED Course Vital Signs 10/09/17 07:13 Temperature 97.5 F L Pulse Rate 101 H Respiratory 22 Rate Blood Pressure 160/100 O2 Sat by Pulse 95 Oximetry ED Medical Decision Making - Radiology Data Radiology results: report reviewed, image reviewed XRAY RIGHT FOOT THREE VIEWS: 10/09/17 07:01:00 CLINICAL: Pain and swelling. FINDINGS: No fracture or dislocation. Mild osteopenia. Moderate soft tissue swelling of the entire foot. No soft tissue air or foreign body. Large plantar and Achilles enthesophytes. IMPRESSION: Nonspecific soft tissue edema. Calcaneal enthesopathy. Transcribed By: REF Dictated By: ROSCOE WARD MD Electronically Authenticated By: ROSCOE WARD MD Signed Date/Time: 10/09/17 0802 - Medical Decision Making 52-year-old male presents with right foot pain ED course: Patient received Toradol and Flexeril in the ED 1. X-rays of the foot show enthesopathic the calcanus bone : see reported above bone 2. I Discussed x-ray findings with the patient. 3. I discussed the patient to keep warm compresses on the foot, rest of foot, keep it elevated from time to time. 4. I discussed patient to follow-up with her primary care physician as well as a president practicing urologist. 5. I discussed the patient to take his medication as prescribed. 6. Vital signs are normal patient is in no acute or respiratory distress. Critical care attestation.: If time is entered above; I have spent that time in minutes in the direct care of this critically ill patient, excluding procedure time. ED Disposition Clinical Impression: Other enthesopathy of right foot Foot pain Qualifiers: Laterality: right Qualified Code(s): M79.671 - Pain in right foot Disposition: DC-01 TO HOME OR SELFCARE Is pt being admited?: No Does the pt Need Aspirin: No Condition: Stable Instructions: Arthralgia (ED), Trigger Point Pain (ED) Additional Instructions: Apply warm compresses to the foot. Particular medication as prescribed. Follow-up with the primary care physician has referred for further follow-up with a president practicing urologist If any other new symptoms or worsening symptoms was returned to the ED Prescriptions: Cyclobenzaprine [Flexeril 10 MG TAB] 10 mg PO QHS #24 tablet Acetaminophen/Codeine [Tylenol /Codeine # 3 tab] 1 tab PO Q6H PRN #12 tab PRN Reason: Pain Colchicine [Colcrys] 0.6 mg PO DAILY #[address] (Nf) 50 mg PO BID #30 tablet. Referrals: PRIMARY CARE, [Primary Care Provider] - 3-5 Days [facility] [Outside] - 3-5 Days [facility] [Outside] - 3-5 Days [facility] [Outside] - 3-5 Days Forms: Work/School Release Form(ED) Time of Disposition: 08:38
[2017-10-09] MEDS ORDERED: TORADOL IM ONE (07:38)
[2017-10-09] MEDS ORDERED: FLEXERIL PO ONE (07:39)
--- NOTE | 2017-10-09 08:09 | XRay Report ---
XRAY RIGHT FOOT THREE VIEWS: 10/09/17 07:01:00 CLINICAL: Pain and swelling. FINDINGS: No fracture or dislocation. Mild osteopenia. Moderate soft tissue swelling of the entire foot. No soft tissue air or foreign body. Large plantar and Achilles enthesophytes. IMPRESSION: Nonspecific soft tissue edema. Calcaneal enthesopathy.
== END 2017-10-09 09:05 | disposition home or self-care (01) ==
LOC: ED 07:01
DX: M77.51 Other enthesopathy of right foot and ankle (principal); I10 Essential (primary) hypertension; I50.9 Heart failure, unspecified; M19.90 Unspecified osteoarthritis, unspecified site; E66.9 Obesity, unspecified; Z87.891 Personal history of nicotine dependence
CPT/HCPCS: 73630; 96372; 99283; J1885

== ENCOUNTER 2018-03-15 10:35 | Emergency (ER) | payer SELFPAY ==
[2018-03-15 10:47] VITALS: BP 166/108
[2018-03-15] MEDS ORDERED: ASPIRIN PO ONE (10:47)
[2018-03-15 11:02] LABS: Basophils # (Auto) 0.1 K/mm3 (0.0-0.1); Basophils % (Auto) 0.8 % (0.0-1.8); Eosinophils # (Auto) 0.1 K/mm3 (0.0-0.4); Hematocrit 50.1 % (35.5-45.6); Hemoglobin 16.6 gm/dl (11.8-15.2); Lymphocytes # (Auto) 1.7 K/mm3 (1.2-5.4); Mean Corpuscular HGB Conc 33 % (32-34); Mean Corpuscular Hemoglobin 26 pg (28-32); Mean Corpuscular Volume 80 fl (84-94); Monocytes # (Auto) 0.5 K/mm3 (0.0-0.8); Monocytes % (Auto) 7.6 % (0.0-7.3); Platelet Count 171 K/mm3 (140-440); Red Blood Count 6.28 M/mm3 (3.65-5.03); Red Cell Distribution Width 15.6 % (13.2-15.2)
[2018-03-15 11:31] LABS: BUN/Creatinine Ratio 16; Blood Urea Nitrogen 14 mg/dL (9-20); Calcium 8.9 mg/dL (8.4-10.2); Hemolysis Index 17
== END 2018-03-15 11:15 | disposition left against medical advice (07) ==
LOC: ED 10:35
DX: R07.9 Chest pain, unspecified (principal); Z53.21 Procedure and treatment not carried out due to patient leaving prior to being seen by health care provider
CPT/HCPCS: 36415; 80048; 84484; 85025; 93005; 93010

== ENCOUNTER 2018-06-08 18:31 | Emergency (ER) | payer SELFPAY ==
[2018-06-08] MEDS ORDERED: PEPCID ONE (19:19)
[2018-06-08] MEDS ORDERED: DELTASONE ONE (19:19)
[2018-06-08] MEDS ORDERED: BENADRYL PO ONE ×2 (19:20→19:25)
[2018-06-08] MEDS ORDERED: PEPCID PO ONE (19:25)
[2018-06-08] MEDS ORDERED: DELTASONE PO ONE (19:25)
--- NOTE | 2018-06-08 21:16 | Emergency Department Report ---
HPI - General Chief Complaint: Allergic Reaction Time Seen by Provider: 06/08/18 21:12 - HPI HPI: Patient 53-year-old -[place] shelf states allergic reaction to eating uruguayan fries and ketchup today symptoms resolved with Benadryl prednisone initial reaction was facial swelling pain patient denies dental caries no headache no dizziness no nausea vomiting or shortness of breath no chest pain no history of allergic reaction in the past ED Past Medical Hx - Past Medical History Hx Hypertension: Yes Hx Congestive Heart Failure: Yes Hx Arthritis: Yes Additional medical history: ATRIAL FIB,GOUT. OBESITY, USES BIPAP @ NIGHT - Surgical History Additional Surgical History: Sinus - Social History Smoking Status: Current Some Day Smoker Substance Use Type: Alcohol - Medications Home Medications: Home Medications Medication Instructions Recorded Confirmed Last Taken Type Apixaban [Eliquis] 5 mg PO BID #60 tablet 11/18/16 08/07/17 Unknown Rx Potassium Chloride [K-Dur] 40 meq PO DAILY #30 tablet 11/18/16 08/07/17 Unknown Rx Diltiazem HCl [Diltiazem 24Hr ER] 360 mg PO DAILY 01/07/17 08/07/17 Unknown History Lisinopril [Zestril TAB] 20 mg PO BID 01/07/17 08/07/17 Unknown History Metoprolol [Lopressor TAB] 25 mg PO BID #60 tablet 01/10/17 08/07/17 Unknown Rx Apixaban [Eliquis] 5 mg PO BID #60 tablet 08/07/17 Unknown Rx Diltiazem HCl [Cardizem LA] 360 mg PO DAILY #30 tab.er.24h 08/07/17 Unknown Rx Diltiazem HCl [Cardizem LA] 360 mg PO DAILY #30 tab.er.24h 08/07/17 Unknown Rx Dofetilide 250 mcg PO BID #60 capsule 08/07/17 Unknown Rx Dofetilide [Tikosyn] 250 mcg PO BID 08/07/17 08/07/17 Unknown History Lisinopril [Zestril TAB] 20 mg PO BID #60 tablet 08/07/17 Unknown Rx Metoprolol [Lopressor TAB] 25 mg PO BID #60 tablet 08/07/17 Unknown Rx Potassium Chloride [K-Dur] 20 meq PO QDAY #30 tablet 08/07/17 Unknown Rx Torsemide [Demadex] 20 mg PO DAILY 08/07/17 08/07/17 Unknown History Torsemide [Demadex] 20 mg PO DAILY #30 tablet 08/07/17 Unknown Rx amLODIPine [Norvasc] 5 mg PO DAILY 08/07/17 08/07/17 Unknown History amLODIPine [Norvasc] 5 mg PO DAILY #30 tab 08/07/17 Unknown Rx Acetaminophen/Codeine [Tylenol 1 tab PO Q6H PRN #12 tab 10/09/17 Unknown Rx /Codeine # 3 tab] Colchicine [Colcrys] 0.6 mg PO DAILY #20 tablet 10/09/17 Unknown Rx Cyclobenzaprine [Flexeril 10 MG 10 mg PO QHS #24 tablet 10/09/17 Unknown Rx TAB] Diclofenac Dr (Nf) 50 mg PO BID #30 tablet.dr 10/09/17 Unknown Rx EPINEPHrine [Epipen 2-Horacio] 0.3 mg IJ PRN PRN #1 auto.injct 06/08/18 Unknown Rx Metoclopramide [Reglan] 10 mg PO TID #30 tab 06/08/18 Unknown Rx diphenhydrAMINE [Benadryl CAP] 25 mg PO Q6HR PRN #30 capsule 06/08/18 Unknown Rx predniSONE [Deltasone] 40 mg PO QDAY 5 Days #10 tab 06/08/18 Unknown Rx ED Review of Systems ROS: Stated complaint: JAW PAIN Other details as noted in HPI Constitutional: denies: chills, fever Eyes: denies: eye pain, eye discharge, vision change ENT: dental pain. denies: ear pain, throat pain, hearing loss, epistaxis, congestion Respiratory: denies: cough, shortness of breath, wheezing Cardiovascular: denies: chest pain, palpitations Endocrine: no symptoms reported Gastrointestinal: denies: abdominal pain, nausea, diarrhea Genitourinary: denies: urgency, dysuria Musculoskeletal: denies: back pain, joint swelling, arthralgia Skin: denies: rash, lesions Neurological: denies: headache, weakness, paresthesias Psychiatric: denies: anxiety, depression Hematological/Lymphatic: denies: easy bleeding, easy bruising Physical Exam - Physical Exam Vital Signs: Vital Signs 06/08/18 19:11 Temperature 98.6 F Pulse Rate 100 H Respiratory 16 Rate Blood Pressure 193/98 O2 Sat by Pulse 96 Oximetry General: Patient feels well no wrist or distress chest pain or shortness of breath no wheezing airway. Uvula midline no stridor no edema no exudate no noted dental caries and vascularly mild left lateral facial swelling no pain no fever ED Course Vital Signs 06/08/18 19:11 Temperature 98.6 F Pulse Rate 100 H Respiratory 16 Rate Blood Pressure 193/98 O2 Sat by Pulse 96 Oximetry ED Medical Decision Making - Medical Decision Making Symptoms resolved at this time with prednisone and Benadryl shortness of breath no wheezing no cough airways patent mild left cheek swelling no noted dental caries exam uvula is midline there is no stridor patient is am is oriented Ed from room to ED with no shortness of breath plan prednisone by mouth 5 days Benadryl Reglan patient educated on use of EpiPen . Follow with PCP in 2-3 days restrict instructions to return to ED should his symptoms return patient verbalizes understanding and agreement with discharge plan will be DC'd home in stable condition at this time Critical care attestation.: If time is entered above; I have spent that time in minutes in the direct care of this critically ill patient, excluding procedure time. ED Disposition Clinical Impression: Allergic reaction to food Qualifiers: Encounter type: initial encounter Qualified Code(s): T78.1XXA - Other adverse food reactions, not elsewhere classified, initial encounter Disposition: DC-01 TO HOME OR SELFCARE Is pt being admited?: No Does the pt Need Aspirin: No Condition: Good Instructions: Food Allergy (ED), Allergies (ED), Epinephrine (Injection) Prescriptions: diphenhydrAMINE [Benadryl CAP] 25 mg PO Q6HR PRN #30 capsule PRN Reason: allergies EPINEPHrine [Epipen 2-Horacio] 0.3 mg IJ PRN PRN #1 auto.injct PRN Reason: severe allergic reaction Metoclopramide [Reglan] 10 mg PO TID #30 tab predniSONE [Deltasone] 40 mg PO QDAY 5 Days #10 tab Referrals: [facility] [Outside] - 3-5 Days Forms: Work/School Release Form(ED) Time of Disposition: 21:20
[2018-06-08 21:32] VITALS: BP 173/106
== END 2018-06-08 21:30 | disposition home or self-care (01) ==
LOC: ED 18:31
DX: T78.1XXA Other adverse food reactions, not elsewhere classified, initial encounter (principal); I11.0 Hypertensive heart disease with heart failure; I50.9 Heart failure, unspecified; M19.90 Unspecified osteoarthritis, unspecified site; F17.200 Nicotine dependence, unspecified, uncomplicated; Z91.040 Latex allergy status; Z91.018 Allergy to other foods; Z91.09 Other allergy status, other than to drugs and biological substances; X58.XXXA Exposure to other specified factors, initial encounter
CPT/HCPCS: 99282; J7512

== ENCOUNTER 2018-12-20 13:36 | Emergency (ER) | payer MEDICARE ==
--- NOTE | 2018-12-20 14:04 | Emergency Department Report ---
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 He had a brief LOC. c/o right shoulder pain. Complaint: fall -: Sudden, This afternoon Fall From: other (6 ft ladder) When Fall Occurred: just prior to arrival Place Fall Occurred: other (a friends house) Loss of Consciousness: yes (brief) Prolonged Down Time?: no Symptoms Prior to Fall: none Location: other (right shoulder) Location - Extremities: Right: Shoulder Severity: moderate Severity scale (0 -10): 4 Quality: sharp Context: tripped/slipped (from the ladder) Associated Symptoms: denies - Related Data Home Medications Medication Instructions Recorded Confirmed Last Taken Diltiazem HCl [Diltiazem 24Hr ER] 360 mg PO DAILY 01/07/17 08/07/17 Unknown Lisinopril [Zestril TAB] 20 mg PO BID 01/07/17 08/07/17 Unknown Dofetilide [Tikosyn] 250 mcg PO BID 08/07/17 08/07/17 Unknown Torsemide [Demadex] 20 mg PO DAILY 08/07/17 08/07/17 Unknown amLODIPine [Norvasc] 5 mg PO DAILY 08/07/17 08/07/17 Unknown Previous Rx's Medication Instructions Recorded Last Taken Type Apixaban [Eliquis] 5 mg PO BID #60 tablet 11/18/16 Unknown Rx Potassium Chloride [K-Dur] 40 meq PO DAILY #30 tablet 11/18/16 Unknown Rx Metoprolol [Lopressor TAB] 25 mg PO BID #60 tablet 01/10/17 Unknown Rx Apixaban [Eliquis] 5 mg PO BID #60 tablet 08/07/17 Unknown Rx Diltiazem HCl [Cardizem LA] 360 mg PO DAILY #30 tab.er.24h 08/07/17 Unknown Rx Diltiazem HCl [Cardizem LA] 360 mg PO DAILY #30 tab.er.24h 08/07/17 Unknown Rx Dofetilide 250 mcg PO BID #60 capsule 08/07/17 Unknown Rx Lisinopril [Zestril TAB] 20 mg PO BID #60 tablet 08/07/17 Unknown Rx Metoprolol [Lopressor TAB] 25 mg PO BID #60 tablet 08/07/17 Unknown Rx Potassium Chloride [K-Dur] 20 meq PO QDAY #30 tablet 08/07/17 Unknown Rx Torsemide [Demadex] 20 mg PO DAILY #30 tablet 08/07/17 Unknown Rx amLODIPine [Norvasc] 5 mg PO DAILY #30 tab 08/07/17 Unknown Rx Acetaminophen/Codeine [Tylenol 1 tab PO Q6H PRN #12 tab 10/09/17 Unknown Rx /Codeine # 3 tab] Colchicine [Colcrys] 0.6 mg PO DAILY #20 tablet 10/09/17 Unknown Rx Cyclobenzaprine [Flexeril 10 MG 10 mg PO QHS #24 tablet 10/09/17 Unknown Rx TAB] Diclofenac Dr (Nf) 50 mg PO BID #30 tablet.dr 10/09/17 Unknown Rx EPINEPHrine [Epipen 2-Horacio] 0.3 mg IJ PRN PRN #1 auto.injct 06/08/18 Unknown Rx Metoclopramide [Reglan] 10 mg PO TID #30 tab 06/08/18 Unknown Rx diphenhydrAMINE [Benadryl CAP] 25 mg PO Q6HR PRN #30 capsule 06/08/18 Unknown Rx predniSONE [Deltasone] 40 mg PO QDAY 5 Days #10 tab 06/08/18 Unknown Rx Ibuprofen [Motrin] 800 mg PO Q8HR PRN #20 tablet 12/20/18 Unknown Rx Tramadol HCl [Ultram] 50 mg PO Q8H PRN #12 tablet 12/20/18 Unknown Rx Allergies Allergy/AdvReac Type Severity Reaction Status Date / Time iodine Allergy Itching Verified 12/20/18 13:51 latex Allergy Itching Verified 08/07/17 19:27 soap [From Betadine] Allergy Rash Verified 08/07/17 19:27 peas Allergy Angioedema Uncoded 08/07/17 19:27 ED Review of Systems ROS: Stated complaint: FALLEN OF 6FT LADDER LT SHOULDER INJURY Other details as noted in HPI Comment: All other systems reviewed and negative Constitutional: denies: chills, fever Eyes: denies: eye pain, eye discharge, vision change ENT: denies: ear pain, throat pain Respiratory: denies: cough, shortness of breath, wheezing Cardiovascular: denies: chest pain, palpitations Endocrine: no symptoms reported Gastrointestinal: denies: abdominal pain, nausea, diarrhea Genitourinary: denies: urgency, dysuria Musculoskeletal: other (right shoulder pain). denies: back pain, joint swelling, arthralgia Skin: denies: rash, lesions Neurological: denies: headache, weakness, paresthesias Psychiatric: denies: anxiety, depression Hematological/Lymphatic: denies: easy bleeding, easy bruising ED Past Medical Hx - Past Medical History Hx Hypertension: Yes Hx Congestive Heart Failure: Yes Hx Arthritis: Yes Additional medical history: ATRIAL FIB,GOUT. OBESITY, USES BIPAP @ NIGHT - Surgical History Additional Surgical History: Sinus - Social History Smoking Status: Current Every Day Smoker Substance Use Type: Alcohol, Marijuana - Medications Home Medications: Home Medications Medication Instructions Recorded Confirmed Last Taken Type Apixaban [Eliquis] 5 mg PO BID #60 tablet 11/18/16 08/07/17 Unknown Rx Potassium Chloride [K-Dur] 40 meq PO DAILY #30 tablet 11/18/16 08/07/17 Unknown Rx Diltiazem HCl [Diltiazem 24Hr ER] 360 mg PO DAILY 01/07/17 08/07/17 Unknown History Lisinopril [Zestril TAB] 20 mg PO BID 01/07/17 08/07/17 Unknown History Metoprolol [Lopressor TAB] 25 mg PO BID #60 tablet 01/10/17 08/07/17 Unknown Rx Apixaban [Eliquis] 5 mg PO BID #60 tablet 08/07/17 Unknown Rx Diltiazem HCl [Cardizem LA] 360 mg PO DAILY #30 tab.er.24h 08/07/17 Unknown Rx Diltiazem HCl [Cardizem LA] 360 mg PO DAILY #30 tab.er.24h 08/07/17 Unknown Rx Dofetilide 250 mcg PO BID #60 capsule 08/07/17 Unknown Rx Dofetilide [Tikosyn] 250 mcg PO BID 08/07/17 08/07/17 Unknown History Lisinopril [Zestril TAB] 20 mg PO BID #60 tablet 08/07/17 Unknown Rx Metoprolol [Lopressor TAB] 25 mg PO BID #60 tablet 08/07/17 Unknown Rx Potassium Chloride [K-Dur] 20 meq PO QDAY #30 tablet 08/07/17 Unknown Rx Torsemide [Demadex] 20 mg PO DAILY 08/07/17 08/07/17 Unknown History Torsemide [Demadex] 20 mg PO DAILY #30 tablet 08/07/17 Unknown Rx amLODIPine [Norvasc] 5 mg PO DAILY 08/07/17 08/07/17 Unknown History amLODIPine [Norvasc] 5 mg PO DAILY #30 tab 08/07/17 Unknown Rx Acetaminophen/Codeine [Tylenol 1 tab PO Q6H PRN #12 tab 10/09/17 Unknown Rx /Codeine # 3 tab] Colchicine [Colcrys] 0.6 mg PO DAILY #20 tablet 10/09/17 Unknown Rx Cyclobenzaprine [Flexeril 10 MG 10 mg PO QHS #24 tablet 10/09/17 Unknown Rx TAB] Diclofenac Dr (Nf) 50 mg PO BID #30 tablet.dr 10/09/17 Unknown Rx EPINEPHrine [Epipen 2-Horacio] 0.3 mg IJ PRN PRN #1 auto.injct 06/08/18 Unknown Rx Metoclopramide [Reglan] 10 mg PO TID #30 tab 06/08/18 Unknown Rx diphenhydrAMINE [Benadryl CAP] 25 mg PO Q6HR PRN #30 capsule 06/08/18 Unknown Rx predniSONE [Deltasone] 40 mg PO QDAY 5 Days #10 tab 06/08/18 Unknown Rx Ibuprofen [Motrin] 800 mg PO Q8HR PRN #20 tablet 12/20/18 Unknown Rx Tramadol HCl [Ultram] 50 mg PO Q8H PRN #12 tablet 12/20/18 Unknown Rx ED Physical Exam - General Limitations: No Limitations General appearance: alert, in no apparent distress, obese - Head Head exam: Present: atraumatic, normocephalic - Eye Eye exam: Present: normal appearance, PERRL, EOMI Pupils: Present: normal accommodation - ENT ENT exam: Present: normal exam, normal orophraynx, mucous membranes moist - Neck Neck exam: Present: normal inspection, full ROM. Absent: tenderness, meningismus - Respiratory Respiratory exam: Present: normal lung sounds bilaterally. Absent: respiratory distress, wheezes, rales, rhonchi - Cardiovascular Cardiovascular Exam: Present: regular rate, normal rhythm, normal heart sounds. Absent: systolic murmur, diastolic murmur, rubs, gallop - GI/Abdominal GI/Abdominal exam: Present: soft, normal bowel sounds. Absent: distended, tenderness, guarding, rebound, rigid - Rectal Rectal exam: Present: deferred - Extremities Exam Extremities exam: Present: normal inspection, normal capillary refill, other (right shoulder tenderness to palpation. Decreased ROM due to pain.) - Back Exam Back exam: Present: normal inspection, full ROM. Absent: tenderness, CVA tenderness (R), CVA tenderness (L), muscle spasm, paraspinal tenderness, vertebral tenderness - Neurological Exam Neurological exam: Present: alert, oriented X3, CN II-XII intact - Psychiatric Psychiatric exam: Present: normal affect, normal mood - Skin Skin exam: Present: warm, dry, intact, normal color. Absent: rash ED Course Vital Signs 12/20/18 12/20/18 12/20/18 13:51 14:06 14:21 Temperature 97.7 F Pulse Rate 99 H 97 H Respiratory 18 20 Rate Blood Pressure 162/103 166/85 Blood Pressure 166/85 [Right] O2 Sat by Pulse 95 94 Oximetry 12/20/18 15:15 Temperature Pulse Rate 86 Respiratory 15 Rate Blood Pressure 136/75 Blood Pressure 136/75 [Right] O2 Sat by Pulse 98 Oximetry - Reevaluation(s) Reevaluation #1: 12/20/18 15:39 Patient is feeling much better and he is ready to go home. ED Medical Decision Making - Radiology Data Radiology results: report reviewed, image reviewed CT Head without contrast is negative. Right Shoulder X-ray showed no fracture or dislocation. Critical care attestation.: If time is entered above; I have spent that time in minutes in the direct care of this critically ill patient, excluding procedure time. ED Disposition Clinical Impression: Fall Qualifiers: Encounter type: initial encounter Qualified Code(s): W19.XXXA - Unspecified fall, initial encounter Fall from ladder Qualifiers: Encounter type: initial encounter Qualified Code(s): W11.XXXA - Fall on and from ladder, initial encounter Sprain of right shoulder Qualifiers: Encounter type: initial encounter Shoulder sprain type: unspecified sprain Qualified Code(s): S43.401A - Unspecified sprain of right shoulder joint, initial encounter Disposition: TO HOME OR SELFCARE Is pt being admited?: No Does the pt Need Aspirin: No Condition: Stable Instructions: Fall Prevention (ED), Minor Head Injury (ED), Shoulder Sprain (ED) Additional Instructions: Please follow up with the Orthopedic Surgeon Dr Martínez Larsen in his clinic on Saturday for further evaluation and management. Return to the ED if your condition worsens. Prescriptions: Ibuprofen [Motrin] 800 mg PO Q8HR PRN #20 tablet PRN Reason: Pain, Moderate (4-6) Tramadol HCl [Ultram] 50 mg PO Q8H PRN #12 tablet PRN Reason: Pain , Severe (7-10) Referrals: MARTÍNEZ LARSEN MD [Staff Physician] - 3-5 Days Time of Disposition: 15:42
[2018-12-20] MEDS ORDERED: PERCOCET 5/325 PO ONE (14:10)
[2018-12-20] MEDS ORDERED: CATAPRES PO ONE ×2 (14:14→15:07)
--- NOTE | 2018-12-20 14:34 | XRay Report ---
FINAL REPORT PROCEDURE: XR SHOULDER 2+V RT TECHNIQUE: Right shoulder, three views HISTORY: fall, pain COMPARISON: No prior studies are available for comparison. FINDINGS: No fracture or joint dislocation is identified. Mild acromioclavicular joint osteoarthritis. IMPRESSION: No acute osseous abnormality is seen
--- NOTE | 2018-12-20 14:59 | Cat Scan Report ---
FINAL REPORT PROCEDURE: CT HEAD/BRAIN WO CON TECHNIQUE: Computerized tomography of the head was performed without contrast material. HISTORY: Trauma. Fell. Pain. COMPARISON: Prior study 01/07/2017 FINDINGS: Brain: Brain density appears normal. No evidence of intracranial hemorrhage. No parenchymal hemorrh age, mass lesions or mass effect are seen. No abnormal extraxial fluid collects or masses are seen. Ventricles: Ventricles are normal size and are midline. Bone Windows: No evidence of skull fracture. Paranasal sinuses: Clear Mastoid air cells: Clear IMPRESSION: Negative examination. No evidence of intracranial hemorrhage or skull fracture
[2018-12-20] MEDS ORDERED: TORADOL IM ONE ×2 (15:06)
[2018-12-20 15:15] VITALS: BP 136/75
== END 2018-12-20 16:10 | disposition home or self-care (01) ==
LOC: ED 13:36
DX: S43.401A Unspecified sprain of right shoulder joint, initial encounter (principal); I11.0 Hypertensive heart disease with heart failure; M19.90 Unspecified osteoarthritis, unspecified site; I48.91 Unspecified atrial fibrillation; F17.200 Nicotine dependence, unspecified, uncomplicated; M10.9 Gout, unspecified; E66.9 Obesity, unspecified; Z68.44 Body mass index [BMI] 60.0-69.9, adult; Z91.040 Latex allergy status; Z91.041 Radiographic dye allergy status; W11.XXXA Fall on and from ladder, initial encounter; Y93.89 Activity, other specified; Y92.098 Other place in other non-institutional residence as the place of occurrence of the external cause; Y99.8 Other external cause status
CPT/HCPCS: 70450; 73030; 96372; 99284; J1885

== ENCOUNTER 2019-01-25 09:51 | Emergency (ER) | payer MEDICARE ==
[2019-01-25 10:00] VITALS: BP 132/88
[2019-01-25] MEDS ORDERED: DECADRON IM ONE (10:09)
[2019-01-25] MEDS ORDERED: SOLU-Medrol IM ONE (10:10)
[2019-01-25] MEDS ORDERED: NORCO 7.5/325 PO ONE (10:10)
--- NOTE | 2019-01-25 10:17 | Emergency Department Report ---
ED Lower Extremity HPI - General Chief Complaint: Extremity Injury, Lower Stated Complaint: L FOOT PAIN/SWOLLEN Time Seen by Provider: 01/25/19 10:09 Source: patient Mode of arrival: Wheelchair Limitations: Physical Limitation - History of Present Illness Initial Comments: 53 YO MALE WITH A HX OF GOUT PRESENTS WITH L FOOT PAIN. CONSISTENT WITH HIS GOUT. FOOT RED AND INFLAMED. PT STATES THE MEAT AND LIQUOR GOT HIM. MD Complaint: other -: Gradual Injury: Foot: Left Place: home Severity: moderate Improves With: nothing Worsens With: movement Treatments Prior to Arrival: NSAIDS - Related Data Home Medications Medication Instructions Recorded Confirmed Last Taken Diltiazem HCl [Diltiazem 24Hr ER] 360 mg PO DAILY 01/07/17 08/07/17 Unknown Lisinopril [Zestril TAB] 20 mg PO BID 01/07/17 08/07/17 Unknown Dofetilide [Tikosyn] 250 mcg PO BID 08/07/17 08/07/17 Unknown Torsemide [Demadex] 20 mg PO DAILY 08/07/17 08/07/17 Unknown amLODIPine [Norvasc] 5 mg PO DAILY 08/07/17 08/07/17 Unknown Previous Rx's Medication Instructions Recorded Last Taken Type Apixaban [Eliquis] 5 mg PO BID #60 tablet 08/07/17 Unknown Rx Metoprolol [Lopressor TAB] 25 mg PO BID #60 tablet 08/07/17 Unknown Rx Potassium Chloride [K-Dur] 20 meq PO QDAY #30 tablet 08/07/17 Unknown Rx Colchicine 0.6 mg PO DAILY #11 capsule 01/25/19 Unknown Rx predniSONE [Deltasone] 20 mg PO QDAY #5 tab 01/25/19 Unknown Rx traMADol [Ultram] 50 mg PO Q6HR PRN #12 tablet 01/25/19 Unknown Rx Allergies Allergy/AdvReac Type Severity Reaction Status Date / Time iodine Allergy Itching Verified 12/20/18 13:51 latex Allergy Itching Verified 08/07/17 19:27 soap [From Betadine] Allergy Rash Verified 08/07/17 19:27 peas Allergy Angioedema Uncoded 08/07/17 19:27 ED Review of Systems ROS: Stated complaint: L FOOT PAIN/SWOLLEN Other details as noted in HPI Comment: All other systems reviewed and negative Constitutional: denies: chills Eyes: denies: eye pain ENT: denies: throat pain Respiratory: denies: orthopnea Cardiovascular: denies: palpitations Endocrine: denies: flushing Gastrointestinal: denies: abdominal pain Genitourinary: denies: urgency Musculoskeletal: as per HPI Neurological: denies: headache Psychiatric: denies: anxiety Hematological/Lymphatic: denies: as per HPI ED Past Medical Hx - Past Medical History Previous Medical History?: Yes Hx Hypertension: Yes Hx Congestive Heart Failure: Yes Hx Arthritis: Yes Additional medical history: ATRIAL FIB,GOUT. OBESITY, USES BIPAP @ NIGHT,PSORIASIS - Surgical History Past Surgical History?: Yes Additional Surgical History: Sinus - Family History Family history: no significant - Social History Smoking Status: Current Every Day Smoker Substance Use Type: Alcohol, Marijuana - Medications Home Medications: Home Medications Medication Instructions Recorded Confirmed Last Taken Type Diltiazem HCl [Diltiazem 24Hr ER] 360 mg PO DAILY 01/07/17 08/07/17 Unknown History Lisinopril [Zestril TAB] 20 mg PO BID 01/07/17 08/07/17 Unknown History Apixaban [Eliquis] 5 mg PO BID #60 tablet 08/07/17 Unknown Rx Dofetilide [Tikosyn] 250 mcg PO BID 08/07/17 08/07/17 Unknown History Metoprolol [Lopressor TAB] 25 mg PO BID #60 tablet 08/07/17 Unknown Rx Potassium Chloride [K-Dur] 20 meq PO QDAY #30 tablet 08/07/17 Unknown Rx Torsemide [Demadex] 20 mg PO DAILY 08/07/17 08/07/17 Unknown History amLODIPine [Norvasc] 5 mg PO DAILY 08/07/17 08/07/17 Unknown History Colchicine 0.6 mg PO DAILY #11 capsule 01/25/19 Unknown Rx predniSONE [Deltasone] 20 mg PO QDAY #5 tab 01/25/19 Unknown Rx traMADol [Ultram] 50 mg PO Q6HR PRN #12 tablet 01/25/19 Unknown Rx ED Physical Exam - General Limitations: No Limitations, Physical Limitation General appearance: alert - Head Head exam: Present: atraumatic - Eye Eye exam: Present: normal appearance, PERRL - ENT ENT exam: Present: normal exam, mucous membranes moist - Neck Neck exam: Present: normal inspection - Respiratory Respiratory exam: Present: normal lung sounds bilaterally - Cardiovascular Cardiovascular Exam: Present: regular rate - GI/Abdominal GI/Abdominal exam: Present: soft, tenderness - Extremities Exam Extremities exam: Present: other ( L FOOT RED AND INFLAMMED MARK AROUND GREAT TOE. PT HAS HX OF GOUT AND HAS NO TRAUMA. ) - Back Exam Back exam: Present: normal inspection - Neurological Exam Neurological exam: Present: alert, oriented X3, CN II-XII intact - Psychiatric Psychiatric exam: Present: normal affect, normal mood - Skin Skin exam: Present: warm, dry, intact ED Course Vital Signs 01/25/19 09:56 Temperature 98.3 F Pulse Rate 92 H Respiratory 20 Rate Blood Pressure 132/88 O2 Sat by Pulse 95 Oximetry ED Lower Extremity MDM - Medical Decision Making A/C GOUT NOT ON GOUT MEDS AT THIS TIME DRANK THIS , AND AT [place] HAS APPNT WITH PCP ON SATURDAY MEDICATED IN ER DC HOME WITH DC PLAN OF CARE Critical care attestation.: If time is entered above; I have spent that time in minutes in the direct care of this critically ill patient, excluding procedure time. ED Disposition Clinical Impression: Gout attack, Morbid obesity, Foot pain, left Disposition: DC-01 TO HOME OR SELFCARE Is pt being admited?: No Does the pt Need Aspirin: No Condition: Stable Instructions: Acute Gouty Arthritis (ED) Additional Instructions: AVOID TRIGGERS MEDS ORDERED SEE PCP SATURDAY SCHEDULED Prescriptions: Colchicine 0.6 mg PO DAILY #11 capsule predniSONE [Deltasone] 20 mg PO QDAY #5 tab traMADol [Ultram] 50 mg PO Q6HR PRN #12 tablet PRN Reason: Pain Referrals: [facility] [Outside] - 3-5 Days Time of Disposition: 10:16
== END 2019-01-25 11:12 | disposition home or self-care (01) ==
LOC: ED 09:51
DX: M10.072 Idiopathic gout, left ankle and foot (principal); E66.01 Morbid (severe) obesity due to excess calories; I11.0 Hypertensive heart disease with heart failure; I50.9 Heart failure, unspecified; M19.90 Unspecified osteoarthritis, unspecified site; F17.200 Nicotine dependence, unspecified, uncomplicated; F12.90 Cannabis use, unspecified, uncomplicated; Z88.8 Allergy status to other drugs, medicaments and biological substances; Z91.048 Other nonmedicinal substance allergy status; Z91.018 Allergy to other foods
CPT/HCPCS: 96372; 99282; J1100; J2920

== ENCOUNTER 2019-06-03 19:51 | Emergency (ER) | payer MEDICARE ==
--- NOTE | 2019-06-03 20:40 | Emergency Department Report ---
Blank Doc - Documentation Documentation: This is a 54-year-old male that presents with lower back pain and bialtreal fl ank pain. Denies any urinary symptoms. This initial assessment/diagnostic orders/clinical plan/treatment(s) is/are subject to change based on patient's health status, clinical progression and re-assessment by fellow clinical providers in the ED. Further treatment and workup at subsequent clinical providers discretion. Patient/guardians urged not to elope from the ED as their condition may be serious if not clinically assessed and managed. Initial orders include: 1- Patient sent to [facility] for further evaluation and treatment 2- UA
[2019-06-03] MEDS ORDERED: MORPHINE IV ONE (21:38)
[2019-06-03] MEDS ORDERED: ZOFRAN IV ONE (21:38)
[2019-06-03 21:45] LABS: Bilirubin,Urine NEG (Negative); Blood,Urine NEG (Negative); Color,Urine Yellow (Yellow); Mucus,Urine FEW /HPF; Protein,Urine <15 mg/dL mg/dL (Negative); Urobilinogen,Urine < 2.0 mg/dL (<2.0); WBC,Urine < 1.0 /HPF (0.0-6.0)
--- NOTE | 2019-06-03 22:26 | Emergency Department Report ---
ED Back Pain/Injury HPI - General Chief Complaint: Back Pain/Injury Stated Complaint: BACK, GROIN, KIDNEY PAIN Time Seen by Provider: 06/03/19 20:39 Source: patient, family Limitations: No Limitations - History of Present Illness Initial Comments: 54-year-old male presents to the ED stating "my kidneys hurt." Patient reports bilateral flank pain 2 days, radiating into the groin. Also reports associated lower abdominal pain. Patient reports nausea, no vomiting. Denies fever, hematuria, dysuria, urinary frequency. Patient denies injury to the back. No previous history of similar back pain. MD Complaint: back pain -: days(s) (2) Similar Symptoms Previously: No Radiation: groin Severity: moderate Quality: aching Consistency: constant Improves With: immobilization Worsens With: movement Context: unknown Associated Symptoms: abdominal pain, nausea/vomiting. denies: chest pain, cough, difficulty urinating, fever/chills, shortness of breath - Related Data Home Medications Medication Instructions Recorded Confirmed Last Taken Diltiazem HCl [Diltiazem 24Hr ER] 360 mg PO DAILY 01/07/17 08/07/17 Unknown Lisinopril [Zestril TAB] 20 mg PO BID 01/07/17 08/07/17 Unknown Dofetilide [Tikosyn] 250 mcg PO BID 08/07/17 08/07/17 Unknown Torsemide [Demadex] 20 mg PO DAILY 08/07/17 08/07/17 Unknown amLODIPine [Norvasc] 5 mg PO DAILY 08/07/17 08/07/17 Unknown Previous Rx's Medication Instructions Recorded Last Taken Type Apixaban [Eliquis] 5 mg PO BID #60 tablet 08/07/17 Unknown Rx Metoprolol [Lopressor TAB] 25 mg PO BID #60 tablet 08/07/17 Unknown Rx Potassium Chloride [K-Dur] 20 meq PO QDAY #30 tablet 08/07/17 Unknown Rx Colchicine 0.6 mg PO DAILY #11 capsule 01/25/19 Unknown Rx predniSONE [Deltasone] 20 mg PO QDAY #5 tab 01/25/19 Unknown Rx traMADol [Ultram] 50 mg PO Q6HR PRN #12 tablet 01/25/19 Unknown Rx HYDROcodone/APAP 5-325 [[place] 1 each PO Q6HR PRN #10 tablet 06/04/19 Unknown Rx 5/325] methOCARBAMOL [Robaxin TAB] 500 mg PO Q8HR PRN #20 tablet 06/04/19 Unknown Rx Allergies Allergy/AdvReac Type Severity Reaction Status Date / Time iodine Allergy Itching Verified 12/20/18 13:51 latex Allergy Itching Verified 08/07/17 19:27 soap [From Betadine] Allergy Rash Verified 08/07/17 19:27 peas Allergy Angioedema Uncoded 08/07/17 19:27 ED Review of Systems ROS: Stated complaint: BACK, GROIN, KIDNEY PAIN Other details as noted in HPI Comment: All other systems reviewed and negative Constitutional: denies: chills, fever Respiratory: denies: cough, shortness of breath Cardiovascular: denies: chest pain Gastrointestinal: abdominal pain, nausea. denies: vomiting, diarrhea Genitourinary: denies: dysuria, frequency, hematuria Musculoskeletal: back pain ED Past Medical Hx - Past Medical History Previous Medical History?: Yes Hx Hypertension: Yes Hx Congestive Heart Failure: Yes Hx Arthritis: Yes Additional medical history: ATRIAL FIB,GOUT. OBESITY, USES BIPAP @ NIGHT,PSORIASIS - Surgical History Past Surgical History?: No Additional Surgical History: Sinus - Social History Smoking Status: Never Smoker Substance Use Type: None - Medications Home Medications: Home Medications Medication Instructions Recorded Confirmed Last Taken Type Diltiazem HCl [Diltiazem 24Hr ER] 360 mg PO DAILY 01/07/17 08/07/17 Unknown History Lisinopril [Zestril TAB] 20 mg PO BID 01/07/17 08/07/17 Unknown History Apixaban [Eliquis] 5 mg PO BID #60 tablet 08/07/17 Unknown Rx Dofetilide [Tikosyn] 250 mcg PO BID 08/07/17 08/07/17 Unknown History Metoprolol [Lopressor TAB] 25 mg PO BID #60 tablet 08/07/17 Unknown Rx Potassium Chloride [K-Dur] 20 meq PO QDAY #30 tablet 08/07/17 Unknown Rx Torsemide [Demadex] 20 mg PO DAILY 08/07/17 08/07/17 Unknown History amLODIPine [Norvasc] 5 mg PO DAILY 08/07/17 08/07/17 Unknown History Colchicine 0.6 mg PO DAILY #11 capsule 01/25/19 Unknown Rx predniSONE [Deltasone] 20 mg PO QDAY #5 tab 01/25/19 Unknown Rx traMADol [Ultram] 50 mg PO Q6HR PRN #12 tablet 01/25/19 Unknown Rx HYDROcodone/APAP 5-325 [[place] 1 each PO Q6HR PRN #10 tablet 06/04/19 Unknown Rx 5/325] methOCARBAMOL [Robaxin TAB] 500 mg PO Q8HR PRN #20 tablet 06/04/19 Unknown Rx ED Physical Exam - General Limitations: No Limitations General appearance: alert, in no apparent distress, obese - Head Head exam: Present: atraumatic, normocephalic - Eye Eye exam: Present: normal appearance, PERRL, EOMI - ENT ENT exam: Present: mucous membranes moist - Neck Neck exam: Present: normal inspection - Respiratory Respiratory exam: Present: normal lung sounds bilaterally. Absent: respiratory distress - Cardiovascular Cardiovascular Exam: Present: regular rate, normal rhythm - GI/Abdominal GI/Abdominal exam: Present: soft, tenderness (mild suprapubic tenderness). Absent: distended - Extremities Exam Extremities exam: Present: normal inspection - Back Exam Back exam: Absent: CVA tenderness (R), CVA tenderness (L), vertebral tenderness - Neurological Exam Neurological exam: Present: alert, oriented X3 - Psychiatric Psychiatric exam: Present: normal affect, normal mood - Skin Skin exam: Present: warm, dry, intact, normal color. Absent: rash ED Course Vital Signs 06/03/19 06/03/19 20:40 22:45 Temperature 97.6 F Pulse Rate 71 Respiratory 24 16 Rate Blood Pressure 144/84 O2 Sat by Pulse 94 Oximetry ED Medical Decision Making - Lab Data Result diagrams: 06/03/19 21:41 06/03/19 21:41 Critical care attestation.: If time is entered above; I have spent that time in minutes in the direct care of this critically ill patient, excluding procedure time. ED Disposition Clinical Impression: Acute back pain Disposition: - TO HOME OR SELFCARE Is pt being admited?: No Condition: Stable Instructions: Back Pain (ED), Flank Pain (ED) Prescriptions: HYDROcodone/APAP 5-325 [[place] 5/325] 1 each PO Q6HR PRN #10 tablet PRN Reason: Pain methOCARBAMOL [Robaxin TAB] 500 mg PO Q8HR PRN #20 tablet PRN Reason: Muscle Spasm Referrals: [facility] MD YESY [Primary Care Provider] - 3-5 Days ALTHEA CRUZ MD [Staff Physician] - 3-5 Days PRIMARY CAREMD [Referring] - 3-5 Days Time of Disposition: 02:40
[2019-06-03 22:42] LABS: Basophils # (Auto) 0.1 K/mm3 (0.0-0.1); Basophils % (Auto) 0.7 % (0.0-1.8); Eosinophils # (Auto) 0.1 K/mm3 (0.0-0.4); Hematocrit 47.6 % (35.5-45.6); Hemoglobin 15.7 gm/dl (11.8-15.2); Lymphocytes % (Auto) 19.5 % (13.4-35.0); Mean Corpuscular HGB Conc 33 % (32-34); Mean Corpuscular Volume 84 fl (84-94); Monocytes # (Auto) 1.1 K/mm3 (0.0-0.8); Monocytes % (Auto) 10.2 % (0.0-7.3); Platelet Count 169 K/mm3 (140-440); Red Blood Count 5.68 M/mm3 (3.65-5.03); Red Cell Distribution Width 14.7 % (13.2-15.2)
[2019-06-03 23:01] LABS: Alanine Aminotransferase 24 units/L (7-56); Albumin 4.1 g/dL (3.9-5); BUN/Creatinine Ratio 43; Blood Urea Nitrogen 47 mg/dL (9-20); Calcium 10.2 mg/dL (8.4-10.2); Hemolysis Index 7
[2019-06-03] MEDS ORDERED: NACL 0.9% 1000 ML 1,000 ML IV ONE (23:08)
[2019-06-04] MEDS ORDERED: DILAUDID IV ONE (01:01)
[2019-06-04] MEDS ORDERED: DILAUDID ONE (01:04)
--- NOTE | 2019-06-04 01:43 | Cat Scan Report ---
CT ABDOMEN AND PELVIS WITHOUT IV CONTRAST INDICATION: bilateral flank pain, lower abd pain. COMPARISON: None available. TECHNIQUE: All CT scans at this facility use dose modulation, automated exposure control, iterative reconstructi on or weight based dosing, when appropriate, to reduce radiation dose to as low as reasonably achieva ble. FINDINGS: Lung Bases: Clear. Skeletal System: No acute abnormality. ABDOMEN: Liver: Normal. Gallbladder: Not visualized. Bile Ducts: Normal. Pancreas: Normal. Spleen: Normal. Adrenals: Normal. Right Kidney: Normal. Left Kidney: Normal. Stomach and Bowel: Normal. Lymph Nodes: No significant adenopathy. Aorta: No significant abnormality. Additional Findings: None. PELVIS: Colon: Normal . Urinary Bladder and Distal Ureters: Normal. Appendix: Normal. Lymph Nodes: No significant adenopathy. Additional Findings: None. IMPRESSION: 1. Within the limitations of non-contrast technique, no acute process in the abdomen or pelvis. Signer Name: Galindo Elkins MD Signed: 06/04/2019 1:38 AM Workstation Name: [email or web address]
[2019-06-04 04:49] VITALS: BP 149/79
== END 2019-06-04 03:30 | disposition home or self-care (01) ==
LOC: ED 19:51
DX: M54.9 Dorsalgia, unspecified (principal); R10.9 Unspecified abdominal pain; R11.0 Nausea; I11.0 Hypertensive heart disease with heart failure; I50.9 Heart failure, unspecified; M19.90 Unspecified osteoarthritis, unspecified site; I48.91 Unspecified atrial fibrillation; L40.9 Psoriasis, unspecified; Z91.041 Radiographic dye allergy status; Z91.040 Latex allergy status; Z91.048 Other nonmedicinal substance allergy status; Z91.018 Allergy to other foods
CPT/HCPCS: 36415; 74176; 80053; 81001; 85025; 96374; 96375; 99284; J1170; J2270; J2405; J7030

== ENCOUNTER 2019-11-14 16:29 | Emergency (ER) | payer MEDICARE ==
--- NOTE | 2019-11-14 16:43 | Event Note ---
ED Screening Note Date of service: 11/14/19 Time: 16:41 ED Screening Note: 54 y o male with PMH of CHF, Afib and recent pneumonia ingection last month presents cc of sob and difficulty breating x 2 days cc of slight chest pain worse with laying down This initial assessment/diagnostic orders/clinical plan/treatment(s) is/are subject to change based on patients health status, clinical progression and re- assessment by fellow clinical providers in the ED. Further treatment and workup at subsequent clinical providers discretion. Patient/guardian urged not to elope from the ED as their condition may be serious if not clinically assessed and managed. Initial orders include: labs, cxr, ekg main side eval
[2019-11-14 17:03] LABS: Basophils % (Auto) 0.6 % (0.0-1.8); Eosinophils # (Auto) 0.1 K/mm3 (0.0-0.4); Eosinophils % (Auto) 2.1 % (0.0-4.3); Hematocrit 38.2 % (35.5-45.6); Hemoglobin 12.5 gm/dl (11.8-15.2); Lymphocytes # (Auto) 1.3 K/mm3 (1.2-5.4); Lymphocytes % (Auto) 22.6 % (13.4-35.0); Mean Corpuscular HGB Conc 33 % (32-34); Mean Corpuscular Volume 88 fl (84-94); Monocytes # (Auto) 0.5 K/mm3 (0.0-0.8); Monocytes % (Auto) 8.4 % (0.0-7.3); Platelet Count 156 K/mm3 (140-440); Red Blood Count 4.36 M/mm3 (3.65-5.03); Red Cell Distribution Width 17.7 % (13.2-15.2)
--- NOTE | 2019-11-14 17:43 | XRay Report ---
CHEST 2 VIEWS INDICATION: Dyspnea. COMPARISON: 08/07/2017. 01/07/2017. FINDINGS: Support devices: None. Heart: Cardiomegaly and hilar enlargement is similar to the previous exam. Lungs/Pleura: Stable mild interstitial thickening. No edema or localized infiltrate. No significant pleural effusion. IMPRESSION: 1. Stable mild cardiomegaly. 2. Hilar prominence is most likely vascular in origin as it is not changed significantly. 3. Mild chronic interstitial thickening. Signer Name: Casey Pulido MD Signed: 11/14/2019 5:38 PM Workstation Name: [id number]
[2019-11-14 18:04] LABS: Creatine Kinase MB 1.5 ng/mL (0.0-4.0)
[2019-11-14 18:07] LABS: BUN/Creatinine Ratio 21; Blood Urea Nitrogen 19 mg/dL (9-20); Calcium 9.3 mg/dL (8.4-10.2); Hemolysis Index 7
[2019-11-14] MEDS ORDERED: FUROSEMIDE 40 MG/4 ML INJ IV ONE (20:56)
[2019-11-14] MEDS ORDERED: MORPHINE 4 MG/1 ML INJ IV ONE (20:57)
--- NOTE | 2019-11-14 21:01 | Emergency Department Report ---
HPI - General Chief Complaint: Dyspnea/Respdistress Time Seen by Provider: 11/14/19 20:48 - HPI HPI: 54-year-old [place] male presents to the emergency department from home with complaint of a three-day history of some shortness of breath that occurs when the patient is laying flat. He also has a history of a three-day history of a headache to the front and bitemporal region of the head. He denies any vision change, slurred speech or any neurological deficits. He does admit to some mild lower extremity swelling. He has a past medical history of CHF, hypertension, atrial fibrillation, gout. 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 Bernal at [facility]. [place] with his primary care physician, Dr. Ramires, and was told to come to the emergency department for further evaluation. He has been taking some Tylenol for his symptoms without any relief. No recent travel or sick contacts at home. ED Past Medical Hx - Past Medical History Previous Medical History?: Yes Hx Hypertension: Yes Hx Congestive Heart Failure: Yes Hx Arthritis: Yes Additional medical history: ATRIAL FIB,GOUT. OBESITY, USES BIPAP @ NIGHT,PSORIASIS - Surgical History Past Surgical History?: Yes Additional Surgical History: Sinus, Gastric bypass surgery - Social History Smoking Status: Never Smoker Substance Use Type: Alcohol - Medications Home Medications: Home Medications Medication Instructions Recorded Confirmed Last Taken Type Diltiazem HCl [Diltiazem 24Hr ER] 360 mg PO DAILY 01/07/17 08/07/17 Unknown History lisinopriL [Zestril TAB] 20 mg PO BID 01/07/17 08/07/17 Unknown History Apixaban [Eliquis] 5 mg PO BID #60 tablet 08/07/17 Unknown Rx Dofetilide [Tikosyn] 250 mcg PO BID 08/07/17 08/07/17 Unknown History Metoprolol [Lopressor TAB] 25 mg PO BID #60 tablet 08/07/17 Unknown Rx Potassium Chloride [K-Dur] 20 meq PO QDAY #30 tablet 08/07/17 Unknown Rx Torsemide [Demadex] 20 mg PO DAILY 08/07/17 08/07/17 Unknown History amLODIPine [Norvasc] 5 mg PO DAILY 08/07/17 08/07/17 Unknown History Colchicine 0.6 mg PO DAILY #11 capsule 01/25/19 Unknown Rx predniSONE [Deltasone] 20 mg PO QDAY #5 tab 01/25/19 Unknown Rx traMADoL [Ultram] 50 mg PO Q6HR PRN #12 tablet 01/25/19 Unknown Rx HYDROcodone/APAP 5-325 [[place] 1 each PO Q6HR PRN #10 tablet 06/04/19 Unknown Rx 5/325] methOCARBAMOL [Robaxin TAB] 500 mg PO Q8HR PRN #20 tablet 06/04/19 Unknown Rx Furosemide [Lasix TAB] 40 mg PO QDAY #3 tablet 11/14/19 Unknown Rx ED Review of Systems ROS: Stated complaint: GE Other details as noted in HPI Comment: All other systems reviewed and negative Constitutional: denies: chills, fever Eyes: denies: eye pain, vision change ENT: denies: ear pain, throat pain Respiratory: orthopnea. denies: cough Cardiovascular: edema. denies: chest pain Gastrointestinal: denies: abdominal pain, vomiting Genitourinary: denies: dysuria, discharge Musculoskeletal: denies: back pain, arthralgia Skin: denies: rash, lesions Neurological: headache, weakness. denies: numbness Physical Exam - Physical Exam Vital Signs: Vital Signs 11/14/19 16:29 Temperature 97.7 F Pulse Rate 65 Respiratory 20 Rate Blood Pressure 151/93 O2 Sat by Pulse 95 Oximetry Physical Exam: GENERAL: The patient is well-developed well-nourished. HEENT: Normocephalic. Atraumatic. Patient has moist mucous membranes. EYES: Extraocular motions are intact. NECK: Supple. Trachea is midline. CHEST/LUNGS: Mild coarse breath sounds. No tachypnea or accessory muscle use. There is no respiratory distress noted. HEART/CARDIOVASCULAR: Regular. There is no tachycardia. There is no gallop rub or murmur. ABDOMEN: Abdomen is soft, nontender. Patient has normal bowel sounds. Obese habitus. SKIN: Mild bilateral lower cavity pitting edema. NEURO: The patient is awake, alert, and oriented. The patient is cooperative. The patient has no focal neurologic deficits. The patient has normal speech. Cranial nerves II through XII grossly intact. MUSCULOSKELETAL: There is no tenderness or deformity. There is no evidence of a cute injury. ED Course Vital Signs 11/14/19 16:29 Temperature 97.7 F Pulse Rate 65 Respiratory 20 Rate Blood Pressure 151/93 O2 Sat by Pulse 95 Oximetry ED Medical Decision Making - Lab Data Result diagrams: 11/14/19 16:54 11/14/19 16:54 - EKG Data -: EKG Interpreted by Me EKG shows normal: sinus rhythm, axis, intervals (prolonged [place] interval), QRS complexes (low-voltage), ST-T waves Rate: normal - EKG Data When compared to previous EKG there are: changes noted (previous EKG was sinus tachycardia with PVCs) Interpretation: other (sinus rhythm, normal axis, prolonged KS interval, low voltage QRS) - Radiology Data Radiology results: image reviewed interpreted by me: Chest x-ray shows some mild pulmonary vascular congestion. No overt pleural effusions, pneumonia, pneumothorax. - Medical Decision Making This patient presents with a few days of some orthopnea. On examination he does not appear to have any respiratory distress. He has mild lower extremity pitting edema. EKG does not show any signs of ST elevation LA. Chest x-ray shows some pulmonary vascular congestion without pleural effusions or pneumonia. His vital signs have been stable throughout his ED course. Patient's labs were mostly unremarkable except for a elevated BNP level of about 2300. Patient says he was previously stopped off of his diuretics. He was given a dose of 40 mg of IV Lasix. During his ED course he diuresed about 1400 mL of urine. At this point patient says he is feeling greatly improved. He was able to lay down flat on the gurney for an extended period of time without any shortness of breath or return of his symptoms. He also complained of a mild headache. He did not have any focal, motor or sensory deficits and his cranial nerves are intact. He was given a small dose of pain medication and upon reevaluation the headache has completely resolved. For all these reasons the patient appears safe for discharge home at this time. He has good follow up with both primary care and cardiology. He will avoid excessive salt or fluid intake. He has been placed on a 3 day course of Lasix to continue some diuresis. He will return to the emergency Department with any worsening of his symptoms or any acute distress. Critical Care Time: No Critical care attestation.: If time is entered above; I have spent that time in minutes in the direct care of this critically ill patient, excluding procedure time. ED Disposition Clinical Impression: CHF exacerbation Qualifiers: Heart failure type: unspecified Qualified Code(s): I50.9 - Heart failure, uns pecified Disposition: DC-01 TO HOME OR SELFCARE Is pt being admited?: No Condition: Stable Instructions: Heart Failure (ED) Additional Instructions: Please follow-up with your primary care physician and infantryman in the next few days. Return to the emergency Department with any worsening of your symptoms or any acute distress. 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
[2019-11-14 22:21] VITALS: BP 143/74
== END 2019-11-14 22:34 | disposition home or self-care (01) ==
LOC: ED 16:29
DX: I50.9 Heart failure, unspecified (principal); I10 Essential (primary) hypertension; M19.90 Unspecified osteoarthritis, unspecified site; Z98.890 Other specified postprocedural states; Z79.899 Other long term (current) drug therapy; Z91.040 Latex allergy status; Z91.048 Other nonmedicinal substance allergy status; Z88.8 Allergy status to other drugs, medicaments and biological substances
CPT/HCPCS: 36415; 71046; 80048; 82550; 82553; 83880; 84484; 85025; 93005; 93010; 96374; 96375; 99284; J1940; J2270